=== PATIENT | male | born 1955 | race Caucasian/White ===

== ENCOUNTER 2024-07-20 11:41 | Day surgery (SDC) | payer OTHER, SELFPAY ==
[2024-07-20] VITALS (8 sets, daily range): BP systolic 120–157; BP diastolic 71–81; BMI 30.4
[2024-07-20] MEDS: NSS 280 ML IV (12:37)
[2024-07-20] MEDS: LOW STRENGTH ASPIRIN 81 MG PO (12:39)
--- NOTE | 2024-07-20 18:40 | PTCARENOTE ---
Patient received from the recyclable materials distributor. Right radial band intact. Right brachial dressing CDI. Walked into room assisted. Placed on telemetry, NSR, VSS. Oriented to call melendez and plan of care. at bedside
--- NOTE | 2024-07-20 20:10 | ITS.CL.PN ---
Assistant To The Ceo - Procedure Note
Procedure
Procedure Note:
CARDIAC CATHETERIZATION REPORT
Date of Procedure: 07/20/2024
Referring: Dr. Malcom Lamb MD
Indication: Severe aortic stenosis
PROCEDURE(S)
1. right heart catheterization
2. coronary angiography
ACCESS
1. 6F right radial artery (closure: radial band)
2. 5F right antecubital vein (closure: manual hemostasis)
CATHETERS
1. 5F [place]
2. 6F MPA (best for RCA given high anterior takeoff with downward trajectory)
3. 6F JL4
MODERATE SEDATION: 40 minutes of moderate sedation was utilized. An independent certified medical dosimetrist was present to assist with and help manage the patient's level of consciousness and physiologic status.
ULTRASOUND GUIDED VASCULAR ACCESS (right radial artery): Ultrasound was utilized for vascular access. The vessel was visualized under ultrasound and noted to be patent. An image of the vessel was stored permanently in the patient's medical record.
Under direct ultrasound guidance, vascular access was obtained using a modified Seldinger technique and a 6 Indian sheath was placed.
ULTRASOUND GUIDED VASCULAR ACCESS (right brachial vein): Ultrasound was utilized for vascular access. The vessel was visualized under ultrasound and noted to be patent. An image of the vessel was stored permanently in the patient's medical record.
Under direct ultrasound guidance, vascular access was obtained using a modified Seldinger technique and a 5 Indian sheath was placed.
HEMODYNAMIC DATA
AO 147/77 (mean 103) mmHg
RA 10 mmHg
RV 62/9 (EDP 18) mmHg
PA 53/22 (mean 38) mmHg
PCWP 33 (with V waves to 48) mmHg
SaO2 92.1%
SvO2 70.2 %
Hb 10.8 g/dL
CO/CI 8.12/3.89 L/min/m2
SVR 916 dsc*-5
PVR 0.6 Wood units
CORONARY ANGIOGRAPHY
Dominance: Right
LM: Large, normal
LAD: Large vessel giving rise to a small D1, small D2, moderate caliber D3, and moderate caliber D4. There is mild nonobstructive disease.
LCx: Large vessel giving rise to a large OM1 and medium caliber LPL branch. There is mild nonobstructive disease.
RCA: Large vessel giving rise to a large caliber RPDA and small RPL branch. There is severe ostial stenosis on the basis of complete lack of catheter reflux during injection with a 6 Indian diagnostic catheter and significant dye hang up prior to
catheter withdrawal. There is otherwise mild nonobstructive disease.
RADIATION: dose 784 mGy; DAP 53.5 Gy*cm2; fluoroscopy time 14.9 min
CONCLUSIONS
1. Single-vessel obstructive coronary artery disease as described with high-grade ostial stenosis of a large dominant RCA and otherwise mild disease.
2. Severely elevated left-sided filling pressure, moderate postcapillary pulmonary hypertension, and supranormal cardiac output.
RECOMMENDATIONS
1. Referral for single-vessel CABG and surgical AVR.
2. Aggressive secondary prevention of coronary artery disease
3. Medical management of diastolic and valvular heart failure
Copy to: Dr. Malcom Lamb MD (preschool associate teacher); Dr. Veto Elizabeth MD (PCP)
Signed: Domenic Lai MD, PhD
== END 2024-07-20 22:17 | disposition home or self-care (01) ==
LOC: CATH 11:41
PROVIDERS: ATTENDING PHYSICIAN Student in an Organized Health Care Education/Training Program; FAMILY PHYSICIAN Internal Medicine; OTHER PHYSICIAN Internal Medicine Cardiovascular Disease
DX: I35.0 Nonrheumatic aortic (valve) stenosis (principal); I25.10 Atherosclerotic heart disease of native coronary artery without angina pectoris; I27.29 Other secondary pulmonary hypertension; I48.0 Paroxysmal atrial fibrillation; E78.5 Hyperlipidemia, unspecified; I10 Essential (primary) hypertension; Z79.890 Hormone replacement therapy; Z79.82 Long term (current) use of aspirin; Z79.01 Long term (current) use of anticoagulants; Z87.891 Personal history of nicotine dependence
CPT/HCPCS: 99152; 99153; 76937; 93456; C1894

== ENCOUNTER → 2024-08-02 10:43 | Outpatient (REF) | payer OTHER, MEDICARE, SELFPAY | LOC: CVOR 10:43 | PROVIDERS: ATTENDING PHYSICIAN Nurse Practitioner Acute Care; FAMILY PHYSICIAN Internal Medicine; OTHER PHYSICIAN Thoracic Surgery (Cardiothoracic Vascular Surgery) | DX: I35.0 Nonrheumatic aortic (valve) stenosis (principal) | CPT/HCPCS: 75572; Q9967 ==

== ENCOUNTER 2024-08-22 04:57 | Inpatient (IN) | payer OTHER, MEDICARE, SELFPAY ==
[2024-07-27 12:16] VITALS: BMI 31.4
[2024-07-27 12:56] LABS: Urine Albumin Negative (Neg - Trace); Urine Bilirubin Negative (Negative); Urine Character Clear (Clear); Urine Color Yellow; Urine Glucose Negative (Negative); Urine Ketone Negative (Negative); Urine Leukocyte 1+ (Negative); Urine Nitrite Negative (Negative); Urine Occult Blood Negative (Negative); Urine Urobilinogen Negative (Neg - 1+)
[2024-07-27 12:58] LABS: % Basophils 0.7 % (0-2); % Eosinophils 3.9 % (0-6); % Immature Granulocytes 0.2 % (0-0.5); % Monocytes 11.3 % (1.7-9.3); % Neutrophils 51.9 % (42.2-75.2); Absolute Eosinophils 0.2 10^3/uL (0-0.7); Absolute Monocytes 0.7 10^3/uL (0.1-0.6); Absolute Neutrophils 3.2 10^3/uL (1.4-6.5); Hematocrit 34.3 % (39.0-52.0); Hemoglobin 11.3 g/dL (13.0-18.0); Mean Corp Hgb Conc. 32.9 g/dL (33.0-37.0); Mean Corpuscular Hgb 27.7 pg (27.0-31.0); Mean Corpuscular Volume 84.1 fL (80.0-94.0); Mean Platelet Volume 10.8 fL (7.4-10.4); Nucleated Red Blood Cells % 0 % (-); Platelet Count 224 10^3/uL (130-400); Red Blood Cell Count 4.08 10^6/uL (4.70-6.10); Red Cell Dist. Width 12.4 % (11.5-14.5); White Blood Cell Count 6.1 10^3/uL (4.8-10.8)
[2024-07-27 13:03] LABS: INR 0.96; PT 13.1 Sec (11.4-14.6)
[2024-07-27 13:03] LABS: Urine Bacteria Few (Negative); Urine Red Blood Cell 0-2 /HPF (0-2)
[2024-07-27 13:04] LABS: APTT 31.6 Sec (23.4-35.0)
[2024-07-27 13:13] LABS: ALT (SGPT) 21 U/L (0-50); AST (SGOT) 22 U/L (17-59); Albumin 4.3 g/dl (3.5-5.0); Alkaline Phosphatase 60 U/L (38-126); Blood Urea Nitrogen 16 mg/dl (9-20); Calcium 9.4 mg/dl (8.4-10.2); Carbon Dioxide 25 mmol/L (22-30); Chloride 103 mmol/L (98-107); Direct Bilirubin 0.1 mg/dl (0.0-0.4); Estimated Creatinine Clearance 103 ml/min; Glucose 93 mg/dl (70-99); Potassium 4.1 mmol/L (3.5-5.1); Sodium 136 mmol/L (135-145); Total Bilirubin 1.1 mg/dl (0.2-1.3); Total Protein 6.8 g/dl (6.3-8.2); eGFR > 60.00
[2024-07-27 14:05] LABS: Glycohemoglobin (HgbA1c) 5.3 % (4.0-5.6)
--- NOTE | 2024-07-27 15:22 | CM ---
CM following for DC planning needs.
Met w/ patient and spouse, Jessika during PATs for planned AVR/CABG.
Pt. resides w/ spouse in a private, split level home. Home has 1 [address]. There are 6 steps between levels.
Pt. is indep. in all areas at baseline; + drives, is retired.
Pt. has RX plan and uses [facility] in [place].
Reviewed pre and post op routines.
Soap, shower instructions, Cardiac Surgery booklet provided.
Reviewed post op restrictions to include lifting, driving, flying and sternal precautions.
Reviewed post op MD appointments, Cardiac Rehab and visit from [facility] Transitional [facility] RN.
Plan is for CT Surgery 08/08
Anticipated DC plan is for home w/ [facility] Transitional [facility] RN
CM to follow.
[2024-08-22] VITALS (18 sets, daily range): BP systolic 88–114; BP diastolic 53–65; BMI 30.4
[2024-08-22] MEDS: PROTONIX 40 MG PO (05:40)
[2024-08-22] MEDS: MAGNESIUM OXIDE 500 MG PO (05:40)
[2024-08-22] MEDS: LOPRESSOR 12.5 MG PO (05:40)
[2024-08-22] MEDS: BACTROBAN 2% OINTMENT 1 APPLIC NASAL ×2 (05:42→21:24)
--- NOTE | 2024-08-22 05:52 | PTCARENOTE ---
Patient admitted for CABG, AVR today. Vital signs obtained, clipped, medications administered. Patient took losartan yesterday CT PA notified. BB changed from atenolol 50mg to lopressor 12.5mg. Awaiting transfer to [facility]
--- NOTE | 2024-08-22 06:39 | W.CVOR.SURPR ---
CVOR Surgeon Immed Pre Op
-
I have examined this patient prior to performance of the scheduled procedure.
The patient's condition is unchanged from the time of the dictated/written History and
Physical and the patient is able to undergo the scheduled procedure.
CABG + MAZE + Clip + AVR
[2024-08-22 07:24] LABS: ACT+ - POC 156 Seconds (82-134)
[2024-08-22 08:11] LABS: ACT+ - POC 414 Seconds (82-134)
[2024-08-22 08:17] LABS: B.E. - POC -0.3 mmol/L; Glucose - POC 114 mg/dl (70-99); HCO3 - POC 25 mmol/L (21-28); Hematocrit - POC 31 % PCV (42-52); Hemodilution- POC No; Hemoglobin Calculated - POC 10.7; Ionized Calcium - POC 1.21 mmol/L (1.15-1.33); Lactate - POC 0.61 mmol/L (0.36-0.75); O2 Saturation %Calculated-POC 97.8 % (94-98); PCO2 - POC 45 mmHg (35-48); PO2 - POC 106 mmHg (83-108); Potassium - POC 3.6 mmol/L (3.5-5.1); Sodium - POC 146 mmol/L (136-145); Specimen Type - POC Arterial; pH - POC 7.36 (7.35-7.45)
[2024-08-22 08:27] LABS: ACT+ - POC 535 Seconds (82-134)
[2024-08-22 08:55] LABS: ACT+ - POC 444 Seconds (82-134)
[2024-08-22 09:12] LABS: Urine Albumin 1+ (Neg - Trace); Urine Bilirubin Negative (Negative); Urine Character Clear (Clear); Urine Color Yellow; Urine Glucose Negative (Negative); Urine Ketone Negative (Negative); Urine Leukocyte Negative (Negative); Urine Nitrite Negative (Negative); Urine Occult Blood 4+ (Negative); Urine Urobilinogen Negative (Neg - 1+)
[2024-08-22 09:25] LABS: ACT+ - POC 499 Seconds (82-134)
[2024-08-22 10:12] LABS: ACT+ - POC 96 Seconds (82-134)
[2024-08-22 10:29] LABS: B.E. - POC -4.6 mmol/L; Glucose - POC 132 mg/dl (70-99); HCO3 - POC 21 mmol/L (21-28); Hematocrit - POC 27 % PCV (42-52); Hemodilution- POC Yes; Hemoglobin Calculated - POC 9.2; Ionized Calcium - POC 1.06 mmol/L (1.15-1.33); Lactate - POC 1.05 mmol/L (0.36-0.75); O2 Saturation %Calculated-POC 99.9 % (94-98); PCO2 - POC 40 mmHg (35-48); PO2 - POC 281 mmHg (83-108); Potassium - POC 4.1 mmol/L (3.5-5.1); Sodium - POC 144 mmol/L (136-145); Specimen Type - POC Arterial; pH - POC 7.33 (7.35-7.45)
[2024-08-22 10:30] LABS: Urine Red Blood Cell 16-20 /HPF (0-2)
[2024-08-22 10:31] LABS: Urine Amorphous Seen; Urine Squamous Cell 0-2 /LPF (Few)
--- NOTE | 2024-08-22 10:31 | W.PN.CT.SURG ---
CT Surgery Operative Note
-
CARDIAC SURGERY OPERATIVE REPORT
Preoperative Diagnosis: Aortic valve stenosis with bicuspid valve morphology with single-vessel coronary artery disease and new onset atrial fibrillation
Postoperative Diagnosis: Same
Procedure(s) Performed:
1. Standard sternotomy with aortic and right atrial cannulation
2. Endoscopic harvesting of the right lower extremity
3. Coronary artery bypass grafting x 1 (Ao to RSVG to mid RCA)
4. Surgical left atrial maze [RF ablation using the encompass clamp]
5. Left atrial appendage exclusion [35 mm device]
6. Surgical aortic valve replacement [29 mm biological valve]
7. Placement temporary ventricular pacing wires
8. Trans-esophageal echocardiography
Date of Surgery: 08/22/24
Comorbidities:
1. Critical aortic Valve Stenosis with Bicuspid Valve Morphology (Type 1)
2. Single-vessel coronary artery disease
3. Atrial fibrillation, paroxysmal
4. Hypertension
5. Hyperlipidemia
6. Hemorrhoids
Attending Surgeon: Zachery Nelson MD, MS
Assistants: Raquel Kowalski PA-C (present and necessary to furniture removalist's assistant, retraction, suction, exposure, suture management, and wound closure under my direction) & Caroline Osullivan PA-C (endo vein harvest)
Anesthesiology: Robert Agudelo MD and JOHN Suero
Scrub and Circulating RNs: Tyra Khan RN, Coral Sweeney RN
Powered Bridge Specialist: Yulisa Mathews CCP
Anesthesia: GETA
EBL: per perfusion records
Products: None
CPB Time: 94 minutes
Aortic Cross Clamp Time: 71 minutes
Indication(s) for Procedures: This is a 69-year-old male who has severe aortic valve stenosis with bicuspid valve morphology. He had preserved left ventricular ejection fraction with mild mitral valve insufficiency that was functional. His mean
gradient across the aortic valve was in the 70s with an area of 0.77. Left heart cath demonstrated single-vessel coronary artery disease. Although his clinical status has not changed much and he denies any significant symptoms, he had new onset
atrial fibrillation over the last year. Shared decision making in a multidisciplinary team setting was to pursue surgical aortic valve replacement, left atrial ablation, and single-vessel bypass given his critical levels of aortic valve stenosis.
Aortic Valve Description: Heavily calcified bicuspid aortic valve with fusion of the left right coronary cusp, type I pathology. There is heavy calcium at the free margin extending into the body of the leaflets with Calcium infiltration into the
annulus particularly towards the non-right commissure. His left and right coronary ostia within normal anatomic positions.
Conduit(s) Quality:
RSVG -excellent/uniform in size and minimal varicosities
Target(s) Quality:
mRCA -excellent/large caliber target with 60 cc a minute of flow of antegrade with test dosing to a pressure 80 mmHg.
Findings: LVEF on intraoperative DON was 60% and 70% post procedure of note, he had a very high critical levels of aortic valve stenosis preoperatively while under anesthesia. His mean gradient across his valve was in the 70s and his LV pressures
were in the 200s. There was a moderate degree of aortic valve insufficiency. The aortic valve was implanted using a total of 17 nonpledgeted 2 Ethibond sutures placed circumferentially from LVOT through annulus through sewing cuff. There was no
prosthetic PVL or AI. Mean gradient across the prosthesis was 6 mmHg. He had severe ostial RCA stenosis and a bypass graft was placed to the midportion of the RCA where was soft and pliable. Test dose of antegrade down the graft demonstrated
excellent flow at a pressure of 80 mmHg yielding approximately 60 cc a minute. There were no new regional wall motion abnormalities. His left atrial appendage was verified to be free of any thrombus or debris preoperatively and found to be totally
occlusive postoperatively using a 35mm device. While on cardiopulmonary bypass left atrial maze was performed using the encompass clamp with a total of 3 pairs of successful ablations. At the inclusion of the case, he did have some ventricular
fibrillation immediately after the clamp was removed likely from air entrainment. Shock at 50 J resolved this. Under lidocaine was also given. His ST segments then normalized and his EKG was at baseline levels. He did not require any inotropic
support, he did not require any blood products, and was in his regular sinus rhythm postoperatively.
Specimen(s): Aortic valve leaflets.
Prosthesis:
1. 29 mm Magana Inspiris Resilia aortic valve, serial number: [id number]
2. 35 mm AtriCure clip, serial #[id number]
Description of Procedure: The patient was taken to the operating room. Their identity and procedure to be performed were verified and they were positioned supine on the operating table. Induction via general anesthesia with endotracheal intubation
was performed and central venous access and arterial monitoring were inserted. A preoperative transesophageal echocardiogram was performed. The patient was then prepped and draped from chin to feet in a sterile fashion. A preoperative time-out was
performed with all members of the team present. A midline chest incision was performed along with median sternotomy. Simultaneous endoscopic access of the right lower extremity for saphenous vein harvest was obtained. The innominate vein was
isolated. Full heparinization was given (a total of 63,000 units). I created a pericardial well. The aortic cannulation site was chosen where it was soft, pliable, and free of calcium. Cannulation was performed with an arterial cannula in the
ascending aorta and a triple-stage venous cannula through the right atrial appendage. The arterial cannula line had an appropriate bounce and correlating pressures with test dosing. Next, a root vent/antegrade cannula was inserted into the ascending
aorta. The ACT was confirmed to be over 400 and retrograde autologous priming was performed before commencing cardiopulmonary bypass. The SVC was then away from the RPA and the oblique sinus was developed. The encompass clamp was passed
underneath the SVC and IVC into the transverse and oblique sinuses and 3 successful pairs of ablation were performed using the RF clamp. The pulmonary artery was away from the aorta to facilitate a clamp site. The aortic cross-clamp was
placed after decreasing the flow on the bypass and mean arterial pressure. A total of 1.2L initial dose of antegrade Del-Nido cardioplegia solution was given and planned for re-dosing every 75 minutes as necessary. There was rapid electro-mechanical
arrest of the heart at 400 cc of cardioplegia. The left ventricle was observed for distention on echocardiogram and manual palpation. Cold slush was placed into a sponge and topically on the RV while we systemically cooled to 34 degrees centigrade.
At this point the heart was fully arrested and rotated medially and the left atrial appendage was clipped with a 35 mm device.
Carbon dioxide was used to flood the field. An aortotomy was then created just above the STJ and incision was then enlarged with Metzenbaum scissors. Stay sutures were placed in order to expose the valve. The location of both left and right
coronary vessels were visualized in the root. The aortic valve was inspected and found to be heavily calcified. The leaflets were excised and sent for pathological assessment. The annulus was debrided of any calcium. The root and left ventricular
outflow tract were thoroughly irrigated to remove any debris. At this point the vein had been prepped and was available for use. I then dissected the midportion of the RCA vessel and made a small coronary arteriotomy and then enlarged with Marroquin
scissors. The end of the vein was then beveled and end-to-side anastomosis was created with 7-0 Prolene in a running fashion. Additional cardioplegia of approximately 150 cc was given down this graft as he had a tight ostial lesion known
preoperatively. I then turned my attention back towards the root and A total of 17, non-pledgeted 2-0 ethibond annular sutures were placed [id number] circumferentially. These were brought through the sewing cuff of the prosthetic valve which as
then parachuted into place. The left and right coronary ostia were visualized and were unobstructed by the valve. A Cor-Knot device was used to secure the annular sutures. The valve was inspected and was well seated. The aortotomy was approximated
with 4-0 prolene in two layers. The heart was filled and the root was distended with antegrade cardioplegia to make final assessment of graft length and orientation. I created one aortotomy using a #11 blade then a 4.0mm aortic punch above the
aortic suture line. The proximal anastomoses were created in an end-to-side fashion using 6-0 prolene. At the same time, we started to re-warm to 36.5 degrees centigrade. Temporary bipolar ventricular pacing wires were placed on the base of the
right ventricle. The patient was placed in a Trendelenburg position and flows on bypass were lowered. The aortic cross clamp was removed and flows were slowly brought back up. The aortotomy appeared hemostatic. He was in ventricular fibrillation at
this point and so a 50J defibrillatory shock was done with good effect. 100 of lidocaine was also given. A 30-gauge needle was used to de-air the vein graft. All bypass grafts were inspected and were free from kinking or twisting. The distal and
proximal anastomosis appeared hemostatic. De-airing maneuvers were performed. Transesophageal echocardiography revealed no paravalvular leak and appropriate prosthetic function. Once de-airing was satisfactory, the left ventricular and root vents
were removed. After verifying acceptable parameters, we initiated weaning from cardiopulmonary bypass. Once we were off cardiopulmonary bypass, the venous cannulas was clamped and removed. A test dose of protamine was administered and the patient
was monitored for any adverse reaction before resuming protamine. Once half of the protamine dose was delivered, pump suckers were turned off and the systolic blood pressure was lowered for aortic decannulation. The aortic cannula was removed and
pursestrings were tied down. All cannulation sites were oversewn with a 4-0 prolene. The aortic line, proximal, and distal coronary anastomoses were hemostatic. The mammary bed was inspected and hemostasis was confirmed. Once the mediastinum was
hemostatic, a 19Fr Maxi drain was placed in the Right pleural cavity and two 24Fr Maxi drains were placed within the pericardium. The sternum was approximated with 4#7 single and 3 #8 double stainless steel wires. Fascia was approximated with #1
vicryl suture. The subcutaneous, dermis and epidermis were closed in layers in a running fashion. The skin wound was cleansed and dressed.
All instrument, sponge, and needle counts were confirmed to be correct x 2 at the end of the operation. The patient was transferred to the cardiac intensive care unit in critical but stable condition.
I, Dr. Zachery Nelson, was present, scrubbed for, and performed all critical elements of this procedure.
Zachery Nelson MD, MS
Cardiothoracic Surgeon
[facility]
This operative dictation was created using the [employer] dictation system. Please excuse any grammatical, typographical, or 'sound alike' errors
--- NOTE | 2024-08-22 10:43 | CON.INTV ---
Consultation
Consultation Request
Date/Time Consultation Requested: 08/22/2024 - 1013
Date/Time Consultation Performed: 08/22/2024 - 1037
Requesting Provider: SHANON Ling
Performing Provider: Dr. Boo
Reason for Consultation: s/p SAVR/CABG /MAZE/ELAA
Medical History
-
Chief Complaint: Elective SAVR + CABG
History of Present Illness:
69-year-old male former tobacco smoker with a past medical history of aortic valve stenosis, A-fib on Xarelto, hypertension, dyslipidemia and history of hemorrhoids who presents with elective surgical aortic valve replacement + CABG. Patient known
to the cardiothoracic surgery service with last visit on 07/26/[address] Nelson. Transthoracic echo on 07/12/2024 showed a bicuspid aortic valve that was heavily calcified with severely restricted motion with critical aortic stenosis with mean
gradient of 73 mmHg. Also mild AI and mildly dilated aortic root up to 4.1 cm. Left + right heart catheterization on 07/20/2024 postcapillary pulmonary hypertension with TPG of 5 mmHg, normal PVR of 0.6 Wood units, PA pressure of 53/22, PCWP: 33
mmHg, and single-vessel obstructive coronary artery disease with high-grade ostial stenosis of a large dominant RCA. Surgical intervention of his aortic valve as well as surgical revascularization was discussed and he agreed to this procedure.
Today he underwent CABG x 1, surgical left atrial MAZE using the EnCompass clamp, surgical aortic valve replacement with a 29 mm biological valve and left atrial appendage exclusion with a 35mm device. There were no complications and he was
transferred to the CVICU postoperatively for further care with Production Director services consulted for additional management/recommendations.
When I saw the patient he was resting in bed in no acute distress on SIMV 16/500/40%/5, with PSV: 5. His PIP was 13 cmH2O, VTe 366 mL and breathing at 29 breaths/min. Currently, heart rate 63, BP via A-line 86/50 Pat, BP via NIBP: 93/55, PAP 31/22
and CO/CI: 6.3/3.01, respectively. Mediastinal chest tubes x 2 and right pleural chest tube x [address]. Currently on Precedex at 0.4 mcg/kg/hr, Cardene at 2.5 mg/hr and insulin drip at 2.3 units/hr.
PMHx: Nonrheumatic aortic valve stenosis, A-fib on Xarelto, hypertension, dyslipidemia, history of hemorrhoids
PSHx: Cardiac cath
Past Medical History
Past Medical History: Other (Above as per HPI)
Past Surgical History: Other (Above as per HPI)
Social History
Tobacco: Former Smoker
Alcohol: Occasional (Rarely)
Drug: None
Personal:
Living: With Family
Employment: Retired
Family History
Family History: CAD (Father)
Allergies / Home Medications
Allergies
Allergy/AdvReac Type Severity Reaction Status Date / Time
bee venom protein (honey bee) Allergy Swelling Verified 07/26/24 14:19
Home Medications
�Medication �Instructions �Recorded �Confirmed �Last Taken �Type
atorvastatin 40 mg tablet 40 mg PO QPM #90 tabs 07/20/24 08/22/24 08/21/24 18:00 Rx
nitroglycerin 0.4 mg sublingual 0.4 mg sublingual [id number] PRN 07/20/24 07/26/24 Unknown Rx
tablet chest pain #25 tabs
rivaroxaban 20 mg tablet (Xarelto) 20 mg PO HS Blood Clot 07/20/24 08/22/24 08/19/24 11:00 History
Prevention/Tx
atenolol 50 mg tablet 50 mg PO DAILY Blood Pressure 07/26/24 08/22/24 08/21/24 12:00 History
levothyroxine 125 mcg tablet 125 mcg PO DAILY Thyroid 07/26/24 08/22/24 08/21/24 07:00 History
losartan 100 1 tab PO DAILY Blood Pressure 08/22/24 08/22/24 08/21/24 12:00 History
mg-hydrochlorothiazide 25 mg tablet
Review of Systems
-
Unable to Obtain full review of systems at this time due to: Patient Intubation
Vitals / Labs / Diagnostic Testing
Vital Signs
Temp Pulse Resp BP Pulse Ox
98 F 75 17 102/65 93
08/22/24 15:00 08/22/24 15:00 08/22/24 15:00 08/22/24 15:00 08/22/24 15:00
Lab Data
08/22/24 15:20
08/22/24 10:54
Laboratory Results
08/22/24
10:54
PT 16.1 H
INR 1.24
APTT 30.9
pH 7.36
pCO2 48
pO2 91
HCO3 27.1
O2 Delivery Level
Diagnostic Testing:
Physical Exam
-
HEENT: Normocephalic, Anicteric and Other (ETT in place)
Cardiovascular: S1/S2 and Peripheral Edema (negative)
Respiratory: Wheeze (negative), Rales (negative), Rhonchi (negative), Non-Labored Respirations, Other (Mechanical breath sounds heard bilaterally) and Other (Chest tubes: Mediastinal chest tubes x 2 + right pleural chest tube x 1)
GI: Soft, Non Distended, Non Tender and Normal Bowel Sounds
Neurology: Tremors (negative) and Other (Sedated)
Skin: Warm and Dry
General: Respiratory Distress (negative), Comfortable, Fever (negative) and Chills (negative)
Assessment
-
Assessment: 69-year-old male former tobacco smoker with a past medical history of aortic valve stenosis, A-fib on Xarelto, hypertension, dyslipidemia and history of hemorrhoids who presents with elective surgical aortic valve replacement + CABG.
Patient known to the cardiothoracic surgery service with last visit on 07/26/[address] Nelson. Transthoracic echo on 07/12/2024 showed a bicuspid aortic valve that was heavily calcified with severely restricted motion with critical aortic stenosis
with mean gradient of 73 mmHg. Also mild AI and mildly dilated aortic root up to 4.1 cm. Left + right heart catheterization on 07/20/2024 postcapillary pulmonary hypertension with TPG of 5 mmHg, normal PVR of 0.6 Wood units, PA pressure of 53/22,
PCWP: 33 mmHg, and single-vessel obstructive coronary artery disease with high-grade ostial stenosis of a large dominant RCA. Surgical intervention of his aortic valve as well as surgical revascularization was discussed and he agreed to this
procedure. On 08/22/2024, he underwent CABG x 1, surgical left atrial MAZE using the EnCompass clamp, surgical aortic valve replacement with a 29 mm biological valve and left atrial appendage exclusion with a 35mm device. There were no
complications and he was transferred to the CVICU postoperatively for further care with Production Director services consulted for additional management/recommendations.
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
Impression:
#Critical aortic stenosis with bicuspid valve morphology s/p SAVR with 29 mm biological valve � POD #0
#New onset paroxysmal atrial fibrillation on Xarelto s/p surgical left atrial MAZE using the EnCompass clamp + left atrial appendage exclusion with 35mm device � POD #0
#Single-vessel CAD with high-grade ostial RCA stenosis s/p CABG x 1 (Ao to RSVG to mid RCA) - POD#0
#Anemia due to above
#Hyperglycemia (mild)
#Hypothyroidism
#Hypertension
#Hyperlipidemia
#History of hemorrhoids
#Former tobacco smoker
Plan:
Ventilator settings reviewed
FiO2 will be weaned to maintain SpO2 >90-94%
Minute ventilation will be adjusted
Arterial blood gases will be monitored
Spontaneous breathing trial will be attempted with hopeful extubation after anesthesia/sedation wear off
prn nebulized bronchodilators - not currently bronchospastic
Pulmonary artery catheter parameters will be followed
Pressors/antihypertensive/inotropes/diuretics will be provided as needed
Maintain MAP>65
Replete electrolytes with K>4, Mg>2
Continue DAPT with ASA + plavix; high intensity statin
Monitor chest tube output (mediastinal chest tubes x 2 + right pleural chest tube x 1)
Monitor hemoglobin
Monitor platelet count and coags
Transfuse blood products as needed to maintain Hb>7g/dL, plt>50k (given post-operative status)
CT surgery managing chest tubes
Monitor blood sugar to maintain euglycemia with goal BG 110-140
Insulin drip per protocol
Aspiration precautions
VAP prevention protocol
DVT prophylaxis
Early nutrition
Early mobilization
Critical care statement: A total of 41 minutes of critical care time was provided for this patient today. This includes management of ventilator, spontaneous breathing trial, arterial blood gases, pressors, of unstable vital signs, evaluation of the
patient at bedside, reviewing the patient's pertinent medical records including radiographs, microbiology, laboratory evaluations, and discussion with primary team and critical care nursing.
[2024-08-22 10:56] LABS: Glucose - Point of Care 121 mg/dl (70-99)
--- NOTE | 2024-08-22 10:57 | CM ---
Chart reviewed. Patient is in the OR today. Patient is independent of ADLS, lives with his in a split level, 1 SACHI, 6 steps between, 0 DME. Plan is for the patient to return home with CT Transitional RN. CM to follow
[2024-08-22 11:09] LABS: B.E. 1.2 mmol/L; HCO3 27.1 mmol/L (21-28); Ionized Calcium 1.27 mMOL/L (1.15-1.33); O2 Saturation % 98.7 % (94-98); PCO2 48 mmHg (35-48); PO2 91 mmHg (83-108); Sodium 140 mMOL/L (136-145); pH 7.36 (7.35-7.45)
[2024-08-22 11:23] LABS: Hematocrit 29.2 % (39.0-52.0); Hemoglobin 9.6 g/dL (13.0-18.0); Platelet Count 155 10^3/uL (130-400)
--- NOTE | 2024-08-22 11:27 | PTCARENOTE ---
Pt arrived from CVOR to CVICU at 1055. Pt is intubated and sedated. SR with HR 60's. BP 109/56 MAP 72. PA 32/22, CVP 14, CO 6.30, CI 3.01, SVR 762. Epicardial V wire in place set to 30//. Bilateral pedal pulses weakly palpable, bilateral radial
pulses palpable. #8ET tube in place at 24cm. Vent set to SIMV [id number]%, rate 16, TV 500, Peep 5, Pressure support 5. Pulse oximetry 95%. Oral care completed. Mediastinal chest tubes x2 and right pleural chest tube in place to -20 suction, no sign of
air leak or crepitus, drainage red in color. Bowel sounds hypoactive. Luis catheter in place draining yellow urine. Luis care completed. Midsternal incision approximated and LAKEISHA. Right leg incision with maximilian wrap overlay in place. Right groin
puncture with dressing intact. Right IJ cordis and Rosine at 55cm. Right radial Bridgette intact. Pt currently on Precedex, Cardene and Insulin. Post-op EKG and x-ray obtained. Labs collected and reviewed.
[2024-08-22] MEDS: ANCEF 10 IV ×2 (11:51→11:52)
[2024-08-22] MEDS: NSS 500 IV (11:51)
[2024-08-22] MEDS: ZOFRAN 4 MG IV (11:51)
[2024-08-22] MEDS: DILAUDID 0.25 MG IV (11:51)
[2024-08-22 11:56] LABS: APTT 30.9 Sec (23.4-35.0); INR 1.24; PT 16.1 Sec (11.4-14.6)
[2024-08-22 12:07] LABS: Glucose - Point of Care 166 mg/dl (70-99)
[2024-08-22 12:30] LABS: Blood Urea Nitrogen 15 mg/dl (9-20); Estimated Creatinine Clearance 101 ml/min; Glucose 123 mg/dl (70-99); Magnesium 2.6 mg/dl (1.6-2.3)
--- NOTE | 2024-08-22 12:33 | W.PN.UPDATE ---
Update Note
Progress Note Update
69-year-old male with aortic valve stenosis with bicuspid valve morphology, single-vessel coronary artery disease and new onset atrial fibrillation
IV fluids: 1200
U.O.:� 750
Blood:� none
Wires:� 1 bipolar V-wire
Drips: Cardene @ 2.5, Precedex, Insulin
�
NEURO: sedated, pupils +2mm B/L
RESP: #8OT @24cm> 500/60%/14/5. Lungs clear B/L. 2 mediastinal (0cc on arrival) and R pleural (0cc on arrival) chest tubes to -20cm suction. Sanguineous drainage, no air leak, no crepitus
CV: RRR +S1, S2, no S3, no�rub, no murmur. Dermabond to median sternotomy. RIJ w/[place] locked @ 49cm. PA 27/18; CVP 11; C.O 6.3/CI 3.0
ABD: round, soft, no BS
EXT: no edema, +2/4 DP pulses B/L, no femoral bruit, RLE GRACY wrap intact; left radial A-line intact
: Luis with clear yellow urine
�
A/P: POD #0 s/p aortic valve replacement [29 mm biological valve], CABG x 1 (SVG to mid RCA), surgical left atrial maze [RF ablation using the encompass clamp], left atrial appendage exclusion [35 mm device]
DON: EF�EF 65%, AV 12/7mmhg, no AI
- wean and extubate
- will need instruction regarding antibiotic prophylaxis for dental and invasive procedures
# CAD
- will add ASA, Plavix, statin, beta elieser
# Hx AF
- currently SR
- on Xarelto at home for AF-monitor for need to resume
# Hypothyroidism
- continue Synthroid
�
# acute surgical blood loss anemia-expected
- trend CBC
�
# Hypertension
- assess need to resume home Losartan/HCTZ
[2024-08-22 13:02] LABS: Glucose - Point of Care 145 mg/dl (70-99)
[2024-08-22] MEDS: OFIRMEV 100 IV (13:18)
[2024-08-22] MEDS: TYLENOL PO (13:19)
[2024-08-22 13:23] LABS: B.E. - POC 0.4 mmol/L; Blood Urea Nitrogen - POC 15 mg/dl (3-120); Chloride - POC 108 mmol/L (96-111); Creatinine - POC 0.92 mg/dl (0.3-1.0); Glucose - POC 141 mg/dl (70-99); HCO3 - POC 26 mmol/L (21-28); Hematocrit - POC 29 % PCV (42-52); Hemodilution- POC No; Hemoglobin Calculated - POC 9.9; Ionized Calcium - POC 1.23 mmol/L (1.15-1.33); Lactate - POC 1.01 mmol/L (0.36-0.75); O2 Saturation %Calculated-POC 93.2 % (94-98); PCO2 - POC 43 mmHg (35-48); PO2 - POC 69 mmHg (83-108); Potassium - POC 3.4 mmol/L (3.5-5.1); Sodium - POC 146 mmol/L (136-145); Specimen Type - POC Arterial; pH - POC 7.39 (7.35-7.45)
[2024-08-22 14:06] LABS: Glucose - Point of Care 113 mg/dl (70-99)
--- NOTE | 2024-08-22 14:07 | PTCARENOTE ---
Pt awakening following commands, CPAP trial initiated at 1250. Ofirmev given for pain. ABG done at bedside by CT CHRIS, Rachel. Pt extubated at 1324 without issue to 6L nasal canula. Pulse oximetry 93%.
[2024-08-22] MEDS: DILAUDID 0.5 MG IV ×2 (15:06→18:10)
[2024-08-22 15:14] LABS: Glucose - Point of Care 104 mg/dl (70-99)
[2024-08-22] MEDS: TORADOL 15 MG IV ×2 (15:27→21:46)
[2024-08-22] MEDS: NEURONTIN 100 MG PO ×2 (15:27→22:12)
[2024-08-22] MEDS: PACERONE PO (15:28)
[2024-08-22] MEDS: LOW STRENGTH ASPIRIN 81 MG PO (15:28)
[2024-08-22 15:52] LABS: Hemoglobin 9.4 g/dL (13.0-18.0); Platelet Count 155 10^3/uL (130-400)
[2024-08-22] MEDS: LIPITOR PO (16:31)
--- NOTE | 2024-08-22 16:33 | PTCARENOTE ---
Pt remains SR with HR 70's. BP 98/52 MAP 66. PA 27/18, CVP 10. CO 3.80, CI 7.94, SVR 624. Pulse oximetry 90% on 6L nasal cannula. Pt with complaints of sternal pain, PRN Dilaudid and Toradol administered. Currently on Cardene and Insulin.
--- NOTE | 2024-08-22 16:49 | W.PN.CD ---
Addendum entered and electronically signed by Fili Correia MD 08/22/24 17:33:
I saw and examined the patient.
The JOINTER OPERATOR's note was reviewed and I agree with the note.
Comment:
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 He is awake and alert at time of my assessment. Complaining of chest
pressure. He remains on a Cardene drip but is otherwise off vasoactive infusions. Postop ECG with normal sinus rhythm, LVH with repolarization abnormality, inferior T wave inversions (new).
Continue routine postoperative care.
Continue aspirin, statin, and beta-elieser.
Resume anticoagulation when safe from a surgical standpoint.
Original Note:
Today's Communication / Plan
-
Close post-op monitoring and care per CT surgery/CVICU protocol.
Impression / Plan
-
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
CAD, aortic stenosis:
-s/p coronary artery bypass grafting x 1 (Ao to RSVG to mid RCA), surgical left atrial maze, left atrial appendage exclusion, and biologic aortic valve replacement.
-extubated and in no distress at the time of my assessment
-CT's, Luis, pacer wire in place
-remains on Cardene drip
-EKG and tele SR
-intra-op DON EF 60%
-ASA, statin, BB
PAF:
-stable in SR
-resume OAC when safe post-op
-had surgical maze and GARCIA exclusion as above
HTN:
-monitor post-op
Dyslipidemia:
-statin
Physical Exam
Vital Signs/Labs
Vital Signs
Temp Pulse Resp BP Pulse Ox
97.8 F 73 20 98/53 92
08/22/24 16:00 08/22/24 16:20 08/22/24 16:20 08/22/24 16:00 08/22/24 16:20
08/21/24 08/22/24 08/23/24
06:59 06:59 06:59
Actual Weight 93.4 kg
08/22/24 15:20
08/22/24 10:54
PT 16.1 Sec (11.4-14.6) H 08/22/24 10:54
INR 1.24 08/22/24 10:54
APTT 30.9 Sec (23.4-35.0) 08/22/24 10:54
Magnesium 2.6 mg/dl (1.6-2.3) H 08/22/24 10:54
Physical Exam
Constitutional: No acute distress
EENT: Anicteric
Cardiovascular: Rhythm & rate is regular
Respiratory: Respiratory effort normal and Lungs clear to auscul.
Neuro/Psych: Alert and Oriented
Other: Skin (midsternal incision without redness, drainage, swelling. Well-approximated.)
Data Reviewed
-
Date of Service: August 22, 2024
EKG: Tracing Personally Visualized and interpreted (NSR LVH stable overall from previous) and Other (SR)
Medical Tests (PFT, Pathology etc): Report Reviewed by me (as noted)
Labs: Labs Reviewed by me
[2024-08-22 17:20] LABS: Glucose - Point of Care 125 mg/dl (70-99)
[2024-08-22] MEDS: ANCEF 5 IV (17:23)
[2024-08-22] MEDS: FLEXERIL 5 MG PO (17:24)
[2024-08-22] MEDS: ROXICODONE 5 MG PO (17:24)
[2024-08-22 19:16] LABS: Glucose - Point of Care 105 mg/dl (70-99)
[2024-08-22] MEDS: CARDENE 200 IV (19:19)
[2024-08-22] MEDS: NITROGLYCERIN PREMIX 250 IV (20:09)
--- NOTE | 2024-08-22 20:43 | PTCARENOTE ---
Report received from GLENN Culp. Walking rounds done. Pt awake, calm, oriented x 4. Does understand Thai. Will speak with his in [place]. Occasional moments of restlessness. Precedex at 0.2 mcg/kg/hr. Keeping SBP 90-110 mm Hg. Cardene gtt
titrated to 12.5 mg/hr for SBP 120-130's. Sats noted to be 91-95% on 6L/NC. Discussed gtts and BP/sats with PA. NTG gtt started at 5 mcg/min at 2018. Cardene gtt titrated downwards as BP tolerates. See med titration flowsheets. Audible heart tones.
+ pericardial rub. V wire attached to temp pacer box, back up rate 30/mA 10/ sens 2. CT x 3, all to -20 cm suction. For pulse and wound assessments, see flowsheets. Pt in SR, rate 70's. Last CI 3.8. SVR 611-shared with PA.
O2 at 6L/NC. BBS present. Decreased B bases. Belly soft, nontender. Hypoactive bs x 4. Luis draining clear, yellow urine. Hourly UO and CT outputs monitored (and CT output prn). Glycemic protocol maintained. Insulin gtt at 2 units/hr. JANEL Fink
at bedse to assess pt. Ongoing plan of care. remains at bedside. Staying overnight.
[2024-08-22 21:00] LABS: Glucose - Point of Care 110 mg/dl (70-99)
[2024-08-22] MEDS: PACERONE 200 MG PO (22:12)
[2024-08-22] MEDS: SENOKOT-S 1 TABLET PO (22:12)
[2024-08-22] MEDS: TYLENOL 1000 MG PO (22:13)
--- NOTE | 2024-08-22 22:15 | PTCARENOTE ---
Precedex gtt off at 2130. Pt more sleepy. RR 13-15 br/min. Sats 90-91%. NTG titrated up to 20 mcg/min. Cardene gtt off at 2200 for BP 90's systolic. O2 sat noted to be 88-91%. Midflow at 15L O2 placed by RT. Transitioned to ventimask 50% due to pt
mouth breathing. Sats 90-92%. NRB applied at 2200. Sats up to 99%. CDB and IS done with pt. IS peak 500 mls.To draw ABG at 2240 per order. Toradol 15 mg IV given for pain-8/10 sternal pain. Ongoing plan of care.
[2024-08-22 22:56] LABS: Glucose - Point of Care 96 mg/dl (70-99)
[2024-08-22 22:56] LABS: B.E. 0.2 mmol/L; HCO3 24.6 mmol/L (21-28); Ionized Calcium 1.18 mMOL/L (1.15-1.33); O2 Saturation % 99.9 % (94-98); PCO2 38 mmHg (35-48); PO2 141 mmHg (83-108); Potassium 3.4 mMOL/L (3.5-5.1); pH 7.42 (7.35-7.45)
[2024-08-22] MEDS: KCL 50 IV (23:17)
--- NOTE | 2024-08-22 23:33 | PTCARENOTE ---
Addendum entered by Manav Navas RN 08/22/24 23:40:
NRB mask increased to 10 L. Sats 93-94% prior to increasing . Pt asked for O2 to be increased. C/O mild dyspnea. PA made aware. Sats on 10L are 97%. Pt sleeping intermittently.
Original Note:
NTG gtt titrated to 50 mcg/min at 2300. Goal SBP 90-110 mm Hg. Cardene gtt restarted per instruction of PA at 2318 at 2.5 mg/hr. PA with ABG results. K 3.4. . 20 meQ KCL IV given x 2 per CVICU protocol. NRB mask at 5L (per PA). Sats 94%.
[2024-08-23] VITALS (26 sets, daily range): BP systolic 88–143; BP diastolic 50–70; PULSE 76; O2SAT 93; BMI 30.6
[2024-08-23] MEDS: KCL 50 IV (00:21)
[2024-08-23 01:22] LABS: Glucose - Point of Care 116 mg/dl (70-99)
[2024-08-23] MEDS: ANCEF 5 IV ×2 (01:45→09:32)
[2024-08-23] MEDS: ROXICODONE 5 MG PO ×4 (01:46→21:32)
--- NOTE | 2024-08-23 02:03 | PTCARENOTE ---
BP elevated 110-120 mm HG systolic. Pt does c/o sternal pain 12/16. Roxicodone 5 mg po given. NTG gtt titrated up to 60 mcg/min at 0130. Cardene gtt titrated up at 0200 to 5 mg/hr. Discussed with PA. CI done: 3.75.
[2024-08-23 03:39] LABS: B.E. -1.8 mmol/L; HCO3 23.1 mmol/L (21-28); Ionized Calcium 1.21 mMOL/L (1.15-1.33); O2 Saturation % 98.8 % (94-98); PCO2 39 mmHg (35-48); PO2 99 mmHg (83-108); Potassium 3.9 mMOL/L (3.5-5.1); pH 7.38 (7.35-7.45)
[2024-08-23 03:39] LABS: Glucose - Point of Care 103 mg/dl (70-99)
[2024-08-23 03:47] LABS: Hematocrit 25.2 % (39.0-52.0); Hemoglobin 8.4 g/dL (13.0-18.0); Mean Corp Hgb Conc. 33.3 g/dL (33.0-37.0); Mean Corpuscular Hgb 27.6 pg (27.0-31.0); Mean Corpuscular Volume 82.9 fL (80.0-94.0); Mean Platelet Volume 10.6 fL (7.4-10.4); Platelet Count 151 10^3/uL (130-400); Red Blood Cell Count 3.04 10^6/uL (4.70-6.10)
[2024-08-23 04:04] LABS: Blood Urea Nitrogen 21 mg/dl (9-20); Calcium 8.1 mg/dl (8.4-10.2); Carbon Dioxide 22 mmol/L (22-30); Chloride 112 mmol/L (98-107); Estimated Creatinine Clearance 101 ml/min; Glucose 101 mg/dl (70-99); Magnesium 2.4 mg/dl (1.6-2.3); Potassium 3.9 mmol/L (3.5-5.1); Sodium 142 mmol/L (135-145); eGFR > 60.00
--- NOTE | 2024-08-23 04:12 | W.PN.CT ---
Today's Communication / Plan
-
-pod #1
-hemodynamically and neurologically stable.
-some hypoxia, suspect d/t splinting. pOx 97% on 10L partial rebreather
-encourage IS, pulmonary toilet
-maintained sbp 90-110 overnight per AT
-CI 3.19, CO 6.67, SVR 599. Drips: Nitro 50, Cardene 2.5, Insulin
-CT outputs: 2 meds 85/185, R pleur 75/140 in 12/24 hrs
-wean off drips. Liberalize BP as per Dr. Nelson
-current meds (ASA, Plavix, Lopressor, Amio, Lipitor, Protonix)
-deline
-d/c Luis
-d/c insulin
Assessment / Plan
-
- Aortic valve stenosis with bicuspid valve morphology with single-vessel coronary artery disease and new onset atrial fibrillation- s/p Surgical aortic valve replacement [29 mm Magana Inspiris Resilia biological valve]; CABG x 1 (Ao to RSVG to mid
RCA); EVH of RLE; LAAE [35 mm device] by Dr. Nelson on 08/22/24, pod #1
- Intraop DON: LVEF on intraoperative DON was 60% and 70% post procedure of note, he had a very high critical levels of aortic valve stenosis preoperatively while under anesthesia. His mean gradient across his valve was in the 70s and his LV
pressures were in the 200s. There was a moderate degree of aortic valve insufficiency. There was no prosthetic PVL or AI. Mean gradient across the prosthesis was 6 mmHg. There were no new regional wall motion abnormalities. His left atrial
appendage was verified to be free of any thrombus or debris preoperatively and found to be totally occlusive postoperatively using a 35mm device.
- Critical aortic Valve Stenosis with Bicuspid Valve Morphology (Type 1)
- Single-vessel coronary artery disease
- New onset atrial fibrillation, paroxysmal
- Hypertension
- Hyperlipidemia
- Hemorrhoids
- Former smoker
- Class 1 obesity, BMI 30
- Hypothyroidism
- Acute postop blood loss anemia
- Acute postop atelectasis
- Acute postop hypovolemia with subsequent hypervolemia
Discussed patient care with: Nursing and Care Team
Subjective
-
Date of Service: August 23, 2024
Objective Data
-
PT 16.1 Sec (11.4-14.6) H 08/22/24 10:54
INR 1.24 08/22/24 10:54
APTT 30.9 Sec (23.4-35.0) 08/22/24 10:54
Vital Signs
Vital Signs
Temp Pulse Resp BP Pulse Ox
99.5 F 80 17 105/57 96
08/23/24 02:00 08/23/24 02:00 08/23/24 02:00 08/23/24 01:00 08/23/24 02:00
CT Intake/Output/Weight
08/22/24 08/22/24 08/23/24
06:59 18:59 06:59
Intake Total 470.5 / 1006.6 536.1 / 1006.6
Output Total 805 / 1240 435 / 1240
Balance -334.5 / -233.4 101.1 / -233.4
SaO2: 96
Physical Exam
-
General: Awake and AOx3
Cardiovascular: Regular rate & rhythm, No Murmurs and Rub
Respiratory: Decreased Breath Sounds
Sternum: Stable
Incision: Clean, Dry and Intact
Extremities: No Edema (1+ DPs b/l)
Abdomen: soft, nontender, nondistended, +decreased bowel sounds
Data Reviewed
-
Lab Results: Results Reviewed
Medications: Active Meds Reviewed
Chest X-Ray: Report Reviewed and Image Reviewed
ECG: Report Reviewed and Image Reviewed
[2024-08-23] MEDS: TORADOL 15 MG IV (04:30)
[2024-08-23] MEDS: CARDENE 200 IV (04:31)
[2024-08-23 04:32] LABS: TSH 0.41 uIU/ml (0.47-4.68)
[2024-08-23 05:11] LABS: Glucose - Point of Care 102 mg/dl (70-99)
[2024-08-23] MEDS: SYNTHROID 125 MCG PO (05:58)
[2024-08-23] MEDS: TYLENOL 1000 MG PO ×3 (05:58→21:32)
--- NOTE | 2024-08-23 06:41 | PTCARENOTE ---
Addendum entered by Manav Navas RN 08/23/24 06:46:
Janelle d/c'ed at 0610.
Original Note:
Labs drawn and sent this am. EKG done. CXR done. Everett d/c'ed per protocol and order. Pt helped up to chair at 0625 with assist of 4 (including PA). NTG gtt temporarily off when standing and restarted at 10 mcg/min. Current BP 105/45. Pt in SR. Sats
97% in 11L midflow. Pt denied dizziness, lightheadedness with sitting and standing. remains at bedside.
[2024-08-23 07:07] LABS: Glucose - Point of Care 112 mg/dl (70-99)
--- NOTE | 2024-08-23 08:19 | W.PN.INTV ---
Today's Communication / Plan
Recommendations
Up OOB as tolerated
Insulin to be stopped today, maintain BG 110�140
Encourage incentive spirometer
Pain control
Hypoxia overnight now resolved, unclear what caused it, possibly reperfusion injury in the setting of s/p SAVR vs bronchospasm --> I will make a follow up appt with me in office to continue monitoring and to possibly do full PFT and 6MWT
Patient will be downgraded to CVICU�telemetry status today. Once downgraded to CVICU-telemetry then we will sign off at that time. Thank you for involving us in the care of this patient and please call back with any questions or concerns.
Assessment
-
Assessment: 69-year-old male former tobacco smoker with a past medical history of aortic valve stenosis, A-fib on Xarelto, hypertension, dyslipidemia and history of hemorrhoids who presents with elective surgical aortic valve replacement + CABG.
Patient known to the cardiothoracic surgery service with last visit on 07/26/[address] Nelson. Transthoracic echo on 07/12/2024 showed a bicuspid aortic valve that was heavily calcified with severely restricted motion with critical aortic stenosis
with mean gradient of 73 mmHg. Also mild AI and mildly dilated aortic root up to 4.1 cm. Left + right heart catheterization on 07/20/2024 postcapillary pulmonary hypertension with TPG of 5 mmHg, normal PVR of 0.6 Wood units, PA pressure of 53/22,
PCWP: 33 mmHg, and single-vessel obstructive coronary artery disease with high-grade ostial stenosis of a large dominant RCA. Surgical intervention of his aortic valve as well as surgical revascularization was discussed and he agreed to this
procedure. On 08/22/2024, he underwent CABG x 1, surgical left atrial MAZE using the EnCompass clamp, surgical aortic valve replacement with a 29 mm biological valve and left atrial appendage exclusion with a 35mm device. There were no
complications and he was transferred to the CVICU postoperatively for further care with Customer Development Representative services consulted for additional management/recommendations.
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
Impression:
#Critical aortic stenosis with bicuspid valve morphology s/p SAVR with 29 mm biological valve � POD #1
#New onset paroxysmal atrial fibrillation on Xarelto s/p surgical left atrial MAZE using the EnCompass clamp + left atrial appendage exclusion with 35mm device � POD #1
#Single-vessel CAD with high-grade ostial RCA stenosis s/p CABG x 1 (Ao to RSVG to mid RCA) - POD#1
#Anemia due to above
#Hyperglycemia (mild) - resolved (A1C: 5.3 on 07/27/2024)
#Hypothyroidism
#Hypertension
#Hyperlipidemia
#History of hemorrhoids
#Former tobacco smoker
Plan:
Patient was successfully extubated on 08/22/2024, and is currently on 2 L/min nasal cannula saturating 95%
He did have hypoxia overnight, although CI was >3. Perhaps he had a bronchospasm or sequelae of reperfusion injury in case of s/p SAVR; his interatrial septum appeared normal on DON from 08/22, and his CXR from yesterday as well as this morning
shows stable retrocardiac opacification likely due to subsegmental atelectasis
Continue to wean down O2 flow rate to maintain SpO2 >90-94%
prn nebulized bronchodilators - not currently bronchospastic
Encourage incentive spirometer use q1hr while awake
Pulmonary artery catheter parameters will be followed
Pressors/antihypertensive/inotropes/diuretics will be provided as needed
Maintain MAP>65
Replete electrolytes with K>4, Mg>2
Continue DAPT with ASA + plavix; high intensity statin
Monitor chest tube output (mediastinal chest tubes x 2 + right pleural chest tube x 1)
Monitor hemoglobin
Monitor platelet count and coags
Transfuse blood products as needed to maintain Hb>7g/dL, plt>50k (given post-operative status)
CT surgery managing chest tubes
Monitor blood sugar to maintain euglycemia with goal BG 110-140
Insulin drip to be stopped today. Then start ISS to keep BG at goal as above
Aspiration precautions
DVT prophylaxis
Early nutrition
Early mobilization
Patient will be downgraded to CVICU�telemetry status today. Once downgraded to CVICU-telemetry then we will sign off at that time. Thank you for involving us in the care of this patient and please call back with any questions or concerns.
Total time spent today was 79 minutes for this encounter. Time includes reviewing laboratory test/imaging results, reviewing pertinent medical records, obtaining and reviewing medical history, performing an appropriate exam, ordering medications,
tests and procedures. Time also includes documentation of this encounter, coordinating patient care and communicating with other healthcare professionals. Total time does not include separately billed tests performed on this date of service.
Subjective Dataa
Subjective Data
Date of Service:
Date of Service: August 23, 2024
Chief Complaint: Customer Development Representative Follow Up
Subjective:
Patient was seen and evaluated today at bedside. Overnight he was requiring a nonrebreather at 10 L/min due to hypoxia and he was mouth-breathing prior to that. He also endorsed shortness of breath. Later overnight he had sternal pain and given
Roxicodone with nitroglycerin drip increased to 60 mcg/min and then requiring Cardene drip at 5 mg/h. CI at the time was 3.75.
This morning he feels well. Heart rate 82, BP 129/75, and saturating 95% on 2 L/min. His , Jessika, is at bedside and all questions were answered. He is currently in no acute distress sitting in the chair.
Review of Systems
General: Other (Negative unless mentioned above)
Objective Data
Data Reviewed
Vital Signs / I&O / Oxygen:
Vital Signs
Temp Pulse Resp BP Pulse Ox
99.4 F 76 22 122/70 99
08/23/24 04:00 08/23/24 09:00 08/23/24 09:00 08/23/24 09:00 08/23/24 09:00
Intake and Output
08/22/24 08/23/24 08/24/24
06:59 06:59 06:59
Intake Total 1178.8 / 1192.6 38.4 / 38.4
Output Total 1460 / 1460 70 / 70
Balance -281.2 / -267.4 -31.6 / -31.6
SaO2 [CPAP] 96
SaO2 [SIMV] 93
SaO2 99
Nasal Cannula flow liters per 6
minute
Physical Exam
General: Respiratory Distress (negative), Comfortable, Chills (negative) and Sweats (negative)
HEENT: Normocephalic and Anicteric
Cardiovascular: S1-S2 and Peripheral Edema (negative)
Respiratory: Wheeze (negative), Crackles (Bibasilar), Rhonchi (negative) and Non-Labored Respirations
GI: Soft, Non Distended, Non Tender and Normal Bowel Sounds
Neurology: Awake, Alert and Tremors (negative)
Skin: Warm, Dry, Cyanosis (negative) and Jaundice (negative)
Labs/Micro/Reports
Lab Data
08/23/24 03:25
08/23/24 03:25
Laboratory Results
08/22/24 08/22/24 08/23/24
10:54 22:45 03:25
PT 16.1 H
INR 1.24
APTT 30.9
pH 7.36 7.42 7.38
pCO2 48 38 39
pO2 91 141 H 99
HCO3 27.1 24.6 23.1
O2 Delivery Level
--- NOTE | 2024-08-23 08:30 | PTCARENOTE ---
Assumed care of patient at 0700. Pt is awake, alert, and oriented. Pt remains SR with HR 70's. BP 107/62 MAP 73. Epicardial V wire in place set to 30/10/2. Pulse oximetry 99% on 13L midflow. Mediastinal chest tubes x 2 and right pleural chest tube
in place to -20 suctions, no sign of air leak or crepitus. Pt tolerating PO. Pt is due to void. Midsternal incision approximated and LAKEISHA. Right leg incision with maximilian wrap in place. Right groin puncture dressing intact. Right IJ cordis in place with
KVO. Pt remains on insulin gtt at this time.
[2024-08-23 08:41] LABS: B.E. - POC 3.7 mmol/L; Glucose - POC 119 mg/dl (70-99); HCO3 - POC 30 mmol/L (21-28); Hematocrit - POC 30 % PCV (42-52); Hemodilution- POC Yes; Ionized Calcium - POC 1.05 mmol/L (1.15-1.33); Lactate - POC < 0.30 mmol/L (0.36-0.75); PCO2 - POC 55 mmHg (35-48); PO2 - POC 411 mmHg (83-108); Potassium - POC 3.8 mmol/L (3.5-5.1); Sodium - POC 143 mmol/L (136-145); Specimen Type - POC Arterial; pH - POC 7.35 (7.35-7.45)
[2024-08-23 08:51] LABS: B.E. - POC 2.6 mmol/L; Glucose - POC 152 mg/dl (70-99); HCO3 - POC 29 mmol/L (21-28); Hematocrit - POC 28 % PCV (42-52); Hemodilution- POC Yes; Hemoglobin Calculated - POC 9.5; Lactate - POC < 0.30 mmol/L (0.36-0.75); O2 Saturation %Calculated-POC 99.9 % (94-98); PCO2 - POC 53 mmHg (35-48); PO2 - POC 370 mmHg (83-108); Potassium - POC 4.5 mmol/L (3.5-5.1); Sodium - POC 142 mmol/L (136-145); Specimen Type - POC Arterial; pH - POC 7.34 (7.35-7.45)
[2024-08-23 08:51] LABS: B.E. - POC 1.8 mmol/L; Glucose - POC 183 mg/dl (70-99); HCO3 - POC 28 mmol/L (21-28); Hematocrit - POC 29 % PCV (42-52); Hemodilution- POC Yes; Hemoglobin Calculated - POC 9.8; Ionized Calcium - POC 1.11 mmol/L (1.15-1.33); Lactate - POC < 0.30 mmol/L (0.36-0.75); O2 Saturation %Calculated-POC 99.9 % (94-98); PCO2 - POC 49 mmHg (35-48); PO2 - POC 359 mmHg (83-108); Potassium - POC 4.4 mmol/L (3.5-5.1); Sodium - POC 142 mmol/L (136-145); Specimen Type - POC Arterial; pH - POC 7.36 (7.35-7.45)
[2024-08-23 08:58] LABS: Glucose - Point of Care 96 mg/dl (70-99)
[2024-08-23] MEDS: PROTONIX 40 MG PO (09:24)
[2024-08-23] MEDS: LOPRESSOR 12.5 MG PO ×2 (09:24→15:35)
[2024-08-23] MEDS: MAGNESIUM OXIDE 500 MG PO (09:24)
[2024-08-23] MEDS: LOW STRENGTH ASPIRIN 81 MG PO (09:25)
[2024-08-23] MEDS: PACERONE 200 MG PO ×3 (09:25→21:32)
[2024-08-23] MEDS: SENOKOT-S 1 TABLET PO ×2 (09:25→20:02)
[2024-08-23] MEDS: LIDOCAINE 4% PATCH TOPICAL (09:25)
[2024-08-23] MEDS: PLAVIX 75 MG PO (09:25)
[2024-08-23] MEDS: NEURONTIN 100 MG PO ×3 (09:25→21:32)
[2024-08-23] MEDS: BACTROBAN 2% OINTMENT 1 APPLIC NASAL ×2 (09:25→20:02)
[2024-08-23] MEDS: NSS IV (09:32)
[2024-08-23] MEDS: FLEXERIL 5 MG PO (09:56)
[2024-08-23 11:01] LABS: Glucose - Point of Care 119 mg/dl (70-99)
--- NOTE | 2024-08-23 11:24 | W.PN.ANS.POP ---
Anesthesia Post Operative
- Anesthesia Post Op Note
Vital Signs Stable-See Nursing Note: Yes
Airway Patent: Yes
Adequate Pain Control: Yes
Change in Mental Status: No
Current Postoperative Nausea & Vomiting: No
Anesthesia Complications: No
General Anesthetic Recall: No
Unplanned Admission: No
Post Op Hydration Adequate: Yes
--- NOTE | 2024-08-23 11:30 | PTCARENOTE ---
Nitro gtt off. Right radial Center d/c'd per order. Pt ambulated with cardiac rehab, tolerated well. Right pleural CT d/c'd per order. V wire insulated. Pt SR with HR 70's-80's. BP 118/58 MAP 75. Pulse oximetry 88-90% on room air, pulse oximetry 94%
on 2L nasal cannula.
--- NOTE | 2024-08-23 12:06 | CM ---
Chart reviewed. Patient OOB ambulating the ocampo. Patient is independent of ADLS, lives with his in a split level, 1 SACHI, 6 steps in between, 0 DME. Plan is for the patient to return home with CT Transitional RN. CM to follow
--- NOTE | 2024-08-23 12:23 | W.PN.CD ---
Today's Communication / Plan
-
Incentive spirometry.
Ambulate.
Wean oxygen.
Anticoagulation at CTS discretion.
Low threshold for diuresis (furosemide 40 mg IV x1).
Impression / Plan
-
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
#CAD
-New diagnosis at the time of cath.
-S/P coronary artery bypass grafting x 1 (SVG to mid RCA) with Dr. Nelson, 08/22/2024.
-Routine post operative management.
-Encourage incentive spirometry.
-Ambulate as appropriate.
-Wean oxygen as tolerated.
-Continue amiodarone, aspirin, clopidogrel, metoprolol.
-Resume high dose, high potency statin.
-Low threshold for diuresis. Consider furosemide 40 mg IV x1.
#Bicuspid aortic valve with critical aortic stenosis
-Chronic, progressive.
-S/P #29 Magana Inspiris Resilia aortic valve SAVR (serial number: [id number]) with Dr. Nelson, 08/22/2024.
-Post operative management as above.
#PAF
-Chronic.
-Currently stable in NSR.
-Rate/rhythm control with amiodarone, metoprolol.
-S/P Encompass MAZE with Dr. Nelson, 08/22/2024.
-CHADS-Vasc = 3 (HTN, Age x1, Vascular Disease).
-S/P LAAE (#35 Atricure Clip, serial #[id number]).
-Therapeutic anticoagulation at CT surgery's discretion.
#HTN
-Chronic, currently normotensive.
-Reintroduce medications as indicated.
#Dyslipidemia
-Chronic, stable.
-High dose, high potency statin.
-Goal LDL < 55.
Subjective/Interval History:
Luis catheter discontinued.
Weight up 0.5 kg from baseline.
Still requiring 11-13 L/m on midflow.
BP generally controlled (99-132).
Some mild hypotension earlier.
Hbg 8.4 from 9.4.
DATA:
Surgery, 08/22/2024:
Procedure(s) Performed:
1. Standard sternotomy with aortic and right atrial cannulation
2. Endoscopic harvesting of the right lower extremity
3. Coronary artery bypass grafting x 1 (Ao to RSVG to mid RCA)
4. Surgical left atrial maze [RF ablation using the encompass clamp]
5. Left atrial appendage exclusion [#35 AtriCure clip, serial #[id number]]
6. Surgical aortic valve replacement [#29 Magana Inspiris Resilia aortic valve, serial number: [id number]]
7. Placement temporary ventricular pacing wires
8. Trans-esophageal echocardiography
Intraoperative DON, 08/22/2024:
CONCLUSIONS
Overall LVEF is approximately 60% with no RWMA.
Severe concentric left ventricular hypertrophy.
Stage II Diastolic dysfunction.
Severely dilated left atrium.
Mildly dilated right atrium.
Severe aortic stenosis.
Moderate aortic insufficiency.
CRISTOFER calculates to 1.0 cm2 by continuity equation.
Max AV gradient measures 123 mmHg, mean is 72 mmHg.
Trace mitral regurgitation.
Mid ascending aorta is dilated measuring 3.8 cm at the level of the RPA.
Moderate sessile atheroma seen in the descending aorta.
Mild sessile atheroma seen in the distal aortic arch.
POST OPERATIVE FINDINGS
The patient underwent an AVR with a size 29 bioprosthetic valve, CABG, MAZE,
and a LA appendage clip. Postop rhythm remain sinus. RV and LV function are
normal. Overall LVEF is at least 65% with no new RWMA. The AVR is well seated
with normal cusp motion. No AI or perivalvular leaks noted. Max AV gradient
measures 12 mmHg, mean is 7 mmHg. Trace MR. TV and PV appear normal. Aortic
scan is unchanged. LA appendage has been adequately clipped with minimal
residual lumen and no color flow distal to the clip.
Cardiac Catheterization, 07/20/2024:
CORONARY ANGIOGRAPHY
Dominance: Right
LM: Large, normal
LAD: Large vessel giving rise to a small D1, small D2, moderate caliber D3, and moderate caliber D4. There is mild nonobstructive disease.
LCx: Large vessel giving rise to a large OM1 and medium caliber LPL branch. There is mild nonobstructive disease.
RCA: Large vessel giving rise to a large caliber RPDA and small RPL branch. There is severe ostial stenosis on the basis of complete lack of catheter reflux during injection with a 6 Slovenian diagnostic catheter and significant dye hang up prior to
catheter withdrawal. There is otherwise mild nonobstructive disease.
Transthoracic Echocardiogram, 07/12/2024:
CONCLUSIONS
Bicuspid aortic valve.
Heavily calcified with severely restricted motion.
Critical aortic stenosis, mean gradient across the valve was 73 mmHg, valve
area by planimetry 0.77 cm2.
Mild aortic insufficiency.
Mildly dilated aortic root up to 4.1 cm.
Physical Exam
Vital Signs/Labs
Vital Signs
Temp Pulse Resp BP Pulse Ox
36.7 C 80 24 132/66 94
08/23/24 08:00 08/23/24 12:00 08/23/24 10:14 08/23/24 12:00 08/23/24 12:00
08/22/24 08/23/24 08/24/24
11:59 11:59 11:59
Actual Weight 93.4 kg 93.9 kg
08/23/24 03:25
08/23/24 03:25
PT 16.1 Sec (11.4-14.6) H 08/22/24 10:54
INR 1.24 08/22/24 10:54
APTT 30.9 Sec (23.4-35.0) 08/22/24 10:54
Magnesium 2.4 mg/dl (1.6-2.3) H 08/23/24 03:25
TSH 0.41 uIU/ml (0.47-4.68) L 08/23/24 03:25
Physical Exam
Constitutional: No acute distress and Comfortable
EENT: Anicteric and Moist mucous membranes
Cardiovascular: Rhythm & rate is regular, Pedal edema is absent, JVD pressure is normal, S1S2 is normal and Murmur/rub/gallop absent
Respiratory: Respiratory effort normal and Other (Decreased throughout.)
GI: Soft, Distention absent, Flat, Non tender and Normal bowel sounds
Neuro/Psych: AO x 3
Data Reviewed
-
Date of Service: August 23, 2024
Medical Decision Making: Reviewed Test Results, Independent Historian Assessment and Test Interpretation
EKG: Tracing Personally Visualized and interpreted and Report Reviewed by me
Echo: Report Reviewed by me
X-Ray/CT/US/MRI/NUC/PET: Image Personally Visualized and interpreted and Report Reviewed by me
Medical Tests (PFT, Pathology etc): Report Reviewed by me
Labs: Labs Reviewed by me
Old Records: Reviewed
[2024-08-23] MEDS: FERRLECIT 110 MG IV (15:35)
--- NOTE | 2024-08-23 16:42 | PTCARENOTE ---
Pt remains SR with HR 80's. BP 137/62 MAP 83. Additional dose 12.5mg Lopressor administered. Pulse oximetry 95% on 2L nasal cannula. Mediastinal chest tubes remain in place to suction, no sign of air leak or crepitus. Pt was OOB in chair, pt got
back to bed without RN assistance. Educated pt regarding safety, instructed pt the necessity to call for RN to ambulated and to get in and out of bed despite if his is present.
[2024-08-23] MEDS: LIPITOR 40 MG PO (18:29)
--- NOTE | 2024-08-23 20:00 | PTCARENOTE ---
Assumed care of the patient at 1900. Patient OOB to chair, accompanying. AOx3, c/o mild pain. Sinus rhythm on the monitor, rate 80's, no edema, pulses palpable, rub heard on auscultation, BPs stable, v wire insulated. On 2LNC, CTx2 to -20 cm
wall suction, lungs dim at the bases. Patient tolerating diet, no nausea, passing flatus. DTV, attempted to void into urinal. All surgical sites intact. RIJ Cordis, PIVx1. Patient and intermittently disconnecting own CT, cordis, and removing O2
when ambulating in the room; patient safety and fall/injury risk discussed at length, patient and indicated understanding. Call melendez within reach, assessment of needs ongoing.
[2024-08-23] MEDS: MAGNESIUM OXIDE PO (20:02)
[2024-08-23] MEDS: LOPRESSOR 25 MG PO (20:02)
[2024-08-23] MEDS: MUCINEX 600 MG PO (23:11)
[2024-08-24] VITALS (34 sets, daily range): BP systolic 117–161; BP diastolic 61–79; PULSE 90; O2SAT 94–96; BMI 30.9
--- NOTE | 2024-08-24 | PTCARENOTE ---
Patient sleeping between care, PRN pain medication given, see MAR. VSS; attempting to void, bladder scanned for 371, CVPA aware.
[2024-08-24] MEDS: FLOMAX 0.4 MG PO ×2 (03:29→09:43)
[2024-08-24] MEDS: LR 250 IV (03:29)
--- NOTE | 2024-08-24 03:59 | PTCARENOTE ---
Patient straight cathed at 0245 for 475 - bladder scanned for 471. Urine concentrated, dark, tea colored. CVPA aware, patient given 250 LR bolus. Patient OOB to toilet PRN.
[2024-08-24 04:16] LABS: Hematocrit 26.4 % (39.0-52.0); Hemoglobin 8.6 g/dL (13.0-18.0); Mean Corp Hgb Conc. 32.6 g/dL (33.0-37.0); Mean Corpuscular Hgb 27.7 pg (27.0-31.0); Mean Corpuscular Volume 84.9 fL (80.0-94.0); Mean Platelet Volume 11.4 fL (7.4-10.4); Platelet Count 151 10^3/uL (130-400); Red Blood Cell Count 3.11 10^6/uL (4.70-6.10); Red Cell Dist. Width 13.2 % (11.5-14.5); White Blood Cell Count 11.5 10^3/uL (4.8-10.8)
[2024-08-24] MEDS: CARDENE 200 IV (04:36)
[2024-08-24 04:46] LABS: Blood Urea Nitrogen 23 mg/dl (9-20); Calcium 8.3 mg/dl (8.4-10.2); Carbon Dioxide 25 mmol/L (22-30); Chloride 107 mmol/L (98-107); Estimated Creatinine Clearance 90 ml/min; Glucose 120 mg/dl (70-99); Magnesium 2.5 mg/dl (1.6-2.3); Potassium 4.3 mmol/L (3.5-5.1); Sodium 139 mmol/L (135-145); eGFR > 60.00
--- NOTE | 2024-08-24 04:57 | PTCARENOTE ---
Patient hypertensive, CVPA notified. Cardene gtt initiated. Pending Lopressor administration.
[2024-08-24] MEDS: SYNTHROID 125 MCG PO (05:00)
[2024-08-24] MEDS: LOPRESSOR 25 MG PO (05:00)
[2024-08-24] MEDS: TYLENOL 1000 MG PO ×3 (05:00→22:39)
--- NOTE | 2024-08-24 07:55 | W.PN.CT ---
Today's Communication / Plan
-
-pod #2
-hemodynamically and neurologically stable.
-unable to void after Luis was dcd - straight cathed for 475 cc at 2:30am. Gave 250 LR, started Flomax
-gave BB early this am for HTN
-CT outputs: 2 meds 95/235 in 12/24 hrs
-wean off O2 - pOx 95% on 3L
-current meds (ASA, Plavix, Lopressor, Amio, Lipitor, Protonix)
-encourage IS, OOB
Assessment / Plan
-
- Aortic valve stenosis with bicuspid valve morphology with single-vessel coronary artery disease and new onset atrial fibrillation- s/p Surgical aortic valve replacement [29 mm Magana Inspiris Resilia biological valve]; CABG x 1 (Ao to RSVG to mid
RCA); EVH of RLE; LAAE [35 mm device] by Dr. Nelson on 08/22/24, pod #2
- Intraop DON: LVEF on intraoperative DON was 60% and 70% post procedure of note, he had a very high critical levels of aortic valve stenosis preoperatively while under anesthesia. His mean gradient across his valve was in the 70s and his LV
pressures were in the 200s. There was a moderate degree of aortic valve insufficiency. There was no prosthetic PVL or AI. Mean gradient across the prosthesis was 6 mmHg. There were no new regional wall motion abnormalities. His left atrial
appendage was verified to be free of any thrombus or debris preoperatively and found to be totally occlusive postoperatively using a 35mm device.
- Critical aortic Valve Stenosis with Bicuspid Valve Morphology (Type 1)
- Single-vessel coronary artery disease
- New onset atrial fibrillation, paroxysmal
- Hypertension
- Hyperlipidemia
- Hemorrhoids
- Former smoker
- Class 1 obesity, BMI 30
- Hypothyroidism
- Acute postop blood loss anemia
- Acute postop atelectasis
- Acute postop hypovolemia with subsequent hypervolemia
- Acute urinary retention
Discussed patient care with: Nursing and Care Team
Subjective
-
Date of Service: August 24, 2024
Objective Data
-
Lab Results
08/24/24 03:39
08/24/24 03:39
PT 16.1 Sec (11.4-14.6) H 08/22/24 10:54
INR 1.24 08/22/24 10:54
APTT 30.9 Sec (23.4-35.0) 08/22/24 10:54
Vital Signs
Vital Signs
Temp Pulse Resp BP Pulse Ox
98.3 F 83 16 158/69 95
08/24/24 04:00 08/24/24 05:00 08/24/24 04:00 08/24/24 05:00 08/24/24 05:00
CT Intake/Output/Weight
08/23/24 08/24/24 08/24/24
18:59 06:59 18:59
Intake Total 249.2 / 599.2 350 / 599.2
Output Total 215 / 785 570 / 785
Balance 34.2 / -185.8 -220 / -185.8
SaO2: 95
Physical Exam
-
General: Awake and AOx3
Cardiovascular: Regular rate & rhythm, No Murmurs and Rub
Respiratory: Decreased Breath Sounds
Sternum: Stable
Incision: Clean, Dry and Intact
Abdomen: soft, nontender, nondistended, +decreased bowel sounds
Extremities: No Edema (1+ DPs b/l)
Data Reviewed
-
Lab Results: Results Reviewed
Medications: Active Meds Reviewed
Chest X-Ray: Report Reviewed and Image Reviewed
ECG: Report Reviewed and Image Reviewed
--- NOTE | 2024-08-24 08:04 | W.PN.CD ---
Today's Communication / Plan
-
Furosemide 40 mg IV x1.
D/C metoprolol.
Start carvedilol 12.5 mg BID.
Monitor BP after carvedilol and start to reintroduce home medications (losartan and HCTZ).
Pain control.
Incentive spirometry.
Ambulate.
Impression / Plan
-
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
#CAD
-New diagnosis at the time of cath.
-S/P coronary artery bypass grafting x 1 (SVG to mid RCA) with Dr. Nelson, 08/22/2024.
-Routine post operative management.
-Encourage incentive spirometry.
-Ambulate as appropriate.
-Wean oxygen as tolerated.
-Continue amiodarone, aspirin, clopidogrel.
-Resume high dose, high potency statin.
-Furosemide 40 mg IV x1 today.
#Bicuspid aortic valve with critical aortic stenosis
-Chronic, progressive.
-S/P #29 Magana Inspiris Resilia aortic valve SAVR (serial number: [id number]) with Dr. Nelson, 08/22/2024.
-Post operative management as above.
#PAF
-Chronic.
-Currently stable in NSR.
-Rate/rhythm control with amiodarone. Adding carvedilol.
-S/P [employer]compass MAZE with Dr. Nelson, 08/22/2024.
-CHADS-Vasc = 3 (HTN, Age x1, Vascular Disease).
-S/P LAAE (#35 Atricure Clip, serial #[id number]).
-Therapeutic anticoagulation at CT surgery's discretion.
#HTN
-Chronic, currently hypertensive requiring nicardipine gtt.
-D/C metoprolol and start carvedilol 12.5 mg BID.
-After carvedilol, start to reintroduce home BP meds (losartan/HCTZ).
#Dyslipidemia
-Chronic, stable.
-High dose, high potency statin.
-Goal LDL < 55.
Subjective/Interval History:
Luis catheter discontinued yesterday - patient could not void and bladder scanned for 470 mL. Straight cathed.
Hypertensive this morning. Nicardipine gtt started.
Weight up 0.8 kg from yesterday.
SaO2 95% on 3LNC.
DATA:
Surgery, 08/22/2024:
Procedure(s) Performed:
1. Standard sternotomy with aortic and right atrial cannulation
2. Endoscopic harvesting of the right lower extremity
3. Coronary artery bypass grafting x 1 (Ao to RSVG to mid RCA)
4. Surgical left atrial maze [RF ablation using the encompass clamp]
5. Left atrial appendage exclusion [#35 AtriCure clip, serial #[id number]]
6. Surgical aortic valve replacement [#29 Magana Inspiris Resilia aortic valve, serial number: [id number]]
7. Placement temporary ventricular pacing wires
8. Trans-esophageal echocardiography
Intraoperative DON, 08/22/2024:
CONCLUSIONS
Overall LVEF is approximately 60% with no RWMA.
Severe concentric left ventricular hypertrophy.
Stage II Diastolic dysfunction.
Severely dilated left atrium.
Mildly dilated right atrium.
Severe aortic stenosis.
Moderate aortic insufficiency.
CRISTOFER calculates to 1.0 cm2 by continuity equation.
Max AV gradient measures 123 mmHg, mean is 72 mmHg.
Trace mitral regurgitation.
Mid ascending aorta is dilated measuring 3.8 cm at the level of the RPA.
Moderate sessile atheroma seen in the descending aorta.
Mild sessile atheroma seen in the distal aortic arch.
POST OPERATIVE FINDINGS
The patient underwent an AVR with a size 29 bioprosthetic valve, CABG, MAZE,
and a LA appendage clip. Postop rhythm remain sinus. RV and LV function are
normal. Overall LVEF is at least 65% with no new RWMA. The AVR is well seated
with normal cusp motion. No AI or perivalvular leaks noted. Max AV gradient
measures 12 mmHg, mean is 7 mmHg. Trace MR. TV and PV appear normal. Aortic
scan is unchanged. LA appendage has been adequately clipped with minimal
residual lumen and no color flow distal to the clip.
Cardiac Catheterization, 07/20/2024:
CORONARY ANGIOGRAPHY
Dominance: Right
LM: Large, normal
LAD: Large vessel giving rise to a small D1, small D2, moderate caliber D3, and moderate caliber D4. There is mild nonobstructive disease.
LCx: Large vessel giving rise to a large OM1 and medium caliber LPL branch. There is mild nonobstructive disease.
RCA: Large vessel giving rise to a large caliber RPDA and small RPL branch. There is severe ostial stenosis on the basis of complete lack of catheter reflux during injection with a 6 Spanish diagnostic catheter and significant dye hang up prior to
catheter withdrawal. There is otherwise mild nonobstructive disease.
Transthoracic Echocardiogram, 07/12/2024:
CONCLUSIONS
Bicuspid aortic valve.
Heavily calcified with severely restricted motion.
Critical aortic stenosis, mean gradient across the valve was 73 mmHg, valve
area by planimetry 0.77 cm2.
Mild aortic insufficiency.
Mildly dilated aortic root up to 4.1 cm.
Physical Exam
Vital Signs/Labs
Vital Signs
Temp Pulse Resp BP Pulse Ox
36.8 C 83 16 158/69 95
08/24/24 04:00 08/24/24 05:00 08/24/24 04:00 08/24/24 05:00 08/24/24 08:01
08/22/24 08/23/24 08/24/24
11:59 11:59 11:59
Actual Weight 93.4 kg 93.9 kg 94.7 kg
08/24/24 03:39
08/24/24 03:39
PT 16.1 Sec (11.4-14.6) H 08/22/24 10:54
INR 1.24 08/22/24 10:54
APTT 30.9 Sec (23.4-35.0) 08/22/24 10:54
Magnesium 2.5 mg/dl (1.6-2.3) H 08/24/24 03:39
TSH 0.41 uIU/ml (0.47-4.68) L 08/23/24 03:25
Physical Exam
Constitutional: No acute distress and Comfortable
EENT: Anicteric and Moist mucous membranes
Cardiovascular: Rhythm & rate is regular, Pedal edema is absent, JVD pressure is normal, S1S2 is normal and Murmur/rub/gallop absent
Respiratory: Respiratory effort normal and Other (Decreased at the bases.)
GI: Soft, Distention absent, Flat, Non tender and Normal bowel sounds
Neuro/Psych: AO x 3
Data Reviewed
-
Date of Service: August 24, 2024
Medical Decision Making: Reviewed Test Results, Independent Historian Assessment and Test Interpretation
EKG: Tracing Personally Visualized and interpreted and Report Reviewed by me
Echo: Report Reviewed by me
X-Ray/CT/US/MRI/NUC/PET: Image Personally Visualized and interpreted and Report Reviewed by me
Medical Tests (PFT, Pathology etc): Report Reviewed by me
Labs: Labs Reviewed by me
Old Records: Reviewed
--- NOTE | 2024-08-24 09:00 | PTCARENOTE ---
AAOx4 w/ complaints of pain OOB to chair; NSR VSS; x4 pulses; 3L nc decreased in the bases; GI and WNl, all surgical incisions CDI; RIJC and PIV wnl; CTx2 removed pacing wires removed; see worklist for detailed assessment
[2024-08-24] MEDS: BACTROBAN 2% OINTMENT 1 APPLIC NASAL ×2 (09:42→19:48)
[2024-08-24] MEDS: LIDOCAINE 4% PATCH 1 PATCH TOPICAL (09:42)
[2024-08-24] MEDS: PLAVIX 75 MG PO (09:42)
[2024-08-24] MEDS: PROTONIX 40 MG PO (09:42)
[2024-08-24] MEDS: PACERONE 200 MG PO ×3 (09:42→22:39)
[2024-08-24] MEDS: MAGNESIUM OXIDE 500 MG PO ×2 (09:43→19:47)
[2024-08-24] MEDS: ROXICODONE 5 MG PO ×2 (09:43→22:39)
[2024-08-24] MEDS: LOW STRENGTH ASPIRIN 81 MG PO (09:43)
[2024-08-24] MEDS: NEURONTIN 100 MG PO ×3 (09:43→22:38)
[2024-08-24] MEDS: MUCINEX 600 MG PO ×2 (09:43→19:48)
[2024-08-24] MEDS: SENOKOT-S 1 TABLET PO (09:43)
[2024-08-24] MEDS: LASIX 20 MG IV (09:44)
[2024-08-24] MEDS: NSS 500 IV (10:15)
--- NOTE | 2024-08-24 12:30 | PN.CDI ---
CDI
- -
CDI:
Physician Documentation Request
Admit Date: 08/22/24 04:[address] Surgery,
Clinical Indicators:
Patient admitted with aortic stenosis and CAD; s/p AVR, CABG x 1 08/22.
08/23 PN, 'some hypoxia, suspect d/t splinting. pOx 97% on 10L partial rebreather'
08/23(11:30) RN note, 'Pulse oximetry 88-90% on room air, pulse oximetry 94% on 2L nasal cannula. '
02 requirements:
08/22/24
21:00 08/22/24
23:00 08/23/24
07:00
Flow liters per minute # 5 13
Nasal Cannula flow liters per minute 6
08/23/24
08:30 08/23/24
15:50 08/24/24
00:15
Flow liters per minute # 8
Nasal Cannula flow liters per minute 2 3
Please clarify which of the following accurately represents the patient's respiratory status following surgery:
Acute postoperative pulmonary insufficiency
Hypoxia only
Other, please specify
Additional information for Pulmonary Insufficiency:
Consider when patients require termite treater helper oxygen therapy postoperatively
Weaned off oxygen initially then requiring supplemental oxygen
No other definitive diagnosis to support the need for oxygen (COPD exac, CHF etc.)
Unable to wean from vent
When criteria for respiratory failure not present
May extend stay or require additional resources; may need home O2
Additional information for Respiratory Failure:
Recognized criteria for Respiratory Failure (Source: [facility] Mar 2013)
ABGs: (1 or more) Symptoms Indicate:
1. p)2 <60 or RA SPO2 <91% on RA 1. Tachypnea, SOB, dyspnea 1. Type as:
2. pCO2 50 and pH <7.35 2. Use of accessory muscles a. Hypoxic
3. pO2 decrease of pCO2 increase by 3. Pallor or cyanosis b. Hypercapnic
10 mmHg from baseline if known 4. Anxiety or restlessness 2. If due to procedure or due to another cause
5. Unable to speak in full sentences
Supplemental O2 of > 40% Intubation is not required
Use of terms such as suspected, likely, concern for, or probable (associated with a specific diagnosis that is being evaluated, monitored, or treated as if it exists) are acceptable and can be coded in the inpatient setting, when documented at the
time of discharge.
Thank you,
Radha Mcgee RN BSN
CDI Specialist
available via tiger text
Please use your independent medical judgment in providing your response.
--- NOTE | 2024-08-24 13:00 | PTCARENOTE ---
no change from previous assessment
--- NOTE | 2024-08-24 14:44 | CM ---
Chart reviewed. Patient is independent of ADLS, lives with his in a split level house, 1 SACHI, 0 DME. Plan is for the patient to return home with CT Transitional RN. CM to follow
[2024-08-24] MEDS: FERRLECIT 110 MG IV (14:46)
[2024-08-24] MEDS: LIPITOR 40 MG PO (18:18)
--- NOTE | 2024-08-24 18:34 | PTCARENOTE ---
no change from previous assessment
[2024-08-24] MEDS: SENOKOT-S PO (19:47)
[2024-08-24] MEDS: COREG 12.5 MG PO (19:47)
--- NOTE | 2024-08-24 20:30 | PTCARENOTE ---
Assumed care of patient at 1900. Patient found oob in chair at time of assessment with spouse at bedside. Patient is AOx4, follows commands appropriately, moves all extremities. Lung sounds are diminished at the bases, saO2 94% on 2L via NC. Heart
sounds are audible, SR on the monitor, patient has normal palpable pulses, and no observable edema. Patient has active BS in all four quadrants, reports loose BMs during the day, voiding clear teodora urine. Patient has sternal incision approx with
surg adhesive LAKEISHA, R groin puncture with 4x4 gauze dressing CDI, and RLE incision approx with surg adhesive LAKEISHA. Patient has R IJ cordis receiving KVO and R AC PIV 20G. No c/o pain. Call melendez within reach.
[2024-08-25] VITALS (17 sets, daily range): BP systolic 106–139; BP diastolic 61–86; PULSE 85; O2SAT 92–94; BMI 30.8
[2024-08-25 04:06] LABS: Hematocrit 24.1 % (39.0-52.0); Hemoglobin 7.9 g/dL (13.0-18.0); Mean Corp Hgb Conc. 32.8 g/dL (33.0-37.0); Mean Corpuscular Hgb 27.6 pg (27.0-31.0); Mean Corpuscular Volume 84.3 fL (80.0-94.0); Mean Platelet Volume 10.9 fL (7.4-10.4); Platelet Count 142 10^3/uL (130-400); Red Blood Cell Count 2.86 10^6/uL (4.70-6.10); White Blood Cell Count 8.9 10^3/uL (4.8-10.8)
[2024-08-25 04:19] LABS: Blood Urea Nitrogen 15 mg/dl (9-20); Calcium 8.1 mg/dl (8.4-10.2); Carbon Dioxide 28 mmol/L (22-30); Chloride 107 mmol/L (98-107); Estimated Creatinine Clearance 102 ml/min; Glucose 117 mg/dl (70-99); Magnesium 2.3 mg/dl (1.6-2.3); Potassium 3.8 mmol/L (3.5-5.1); Sodium 139 mmol/L (135-145); eGFR > 60.00
--- NOTE | 2024-08-25 07:26 | W.PN.CT ---
Today's Communication / Plan
-
-pod#3
-looks and feels better overall
-urinary retention resolved
-diuresed well with 20 iv Lasix (UO 1000)- continue
-current meds (ASA, Plavix, Lipitor, Coreg 12.5 bid, Amio, Protonix, Mucinex, Flomax)
-encourage IS, OOB
Assessment / Plan
-
- Aortic valve stenosis with bicuspid valve morphology with single-vessel coronary artery disease and new onset atrial fibrillation- s/p Surgical aortic valve replacement [29 mm Magana Inspiris Resilia biological valve]; CABG x 1 (Ao to RSVG to mid
RCA); EVH of RLE; LAAE [35 mm device] by Dr. Nelson on 08/22/24, pod #3
- Intraop DON: LVEF on intraoperative DON was 60% and 70% post procedure of note, he had a very high critical levels of aortic valve stenosis preoperatively while under anesthesia. His mean gradient across his valve was in the 70s and his LV
pressures were in the 200s. There was a moderate degree of aortic valve insufficiency. There was no prosthetic PVL or AI. Mean gradient across the prosthesis was 6 mmHg. There were no new regional wall motion abnormalities. His left atrial
appendage was verified to be free of any thrombus or debris preoperatively and found to be totally occlusive postoperatively using a 35mm device.
- Critical aortic Valve Stenosis with Bicuspid Valve Morphology (Type 1)
- Single-vessel coronary artery disease
- New onset atrial fibrillation, paroxysmal
- Hypertension
- Hyperlipidemia
- Hemorrhoids
- Former smoker
- Class 1 obesity, BMI 30
- Hypothyroidism
- Acute postop blood loss anemia
- Acute postop atelectasis
- Acute postop hypovolemia with subsequent hypervolemia
- Acute urinary retention
Discussed patient care with: Nursing and Care Team
Subjective
-
Date of Service: August 25, 2024
Objective Data
-
PT 16.1 Sec (11.4-14.6) H 08/22/24 10:54
INR 1.24 08/22/24 10:54
APTT 30.9 Sec (23.4-35.0) 08/22/24 10:54
Vital Signs
Vital Signs
Temp Pulse Resp BP Pulse Ox
99.0 F 79 20 120/62 94
08/24/24 22:49 08/25/24 01:00 08/24/24 22:49 08/24/24 22:49 08/25/24 01:00
CT Intake/Output/Weight
08/24/24 08/24/24 08/25/24
06:59 18:59 06:59
Intake Total 350 / 599.2 10 80 / 90
Output Total 570 / 785 1010 / 1910 900 / 1910
Balance -220 / -185.8 -1000 / -1820 -820 / -1820
SaO2: 94
Physical Exam
-
General: Awake and AOx3
Cardiovascular: Regular rate & rhythm, No Murmurs and No Rub
Respiratory: Rales (at bases) and Decreased Breath Sounds
Sternum: Stable
Incision: Clean, Dry and Intact
Extremities: No Edema
Abdomen: soft, nontender, nondistended, + bowel sounds, + flatus, no nausea
Data Reviewed
-
Lab Results: Results Reviewed
Medications: Active Meds Reviewed
Chest X-Ray: Report Reviewed and Image Reviewed
ECG: Report Reviewed and Image Reviewed
[2024-08-25] MEDS: SYNTHROID 137 MCG PO (07:50)
[2024-08-25] MEDS: TYLENOL PO ×3 (07:50→20:57)
[2024-08-25] MEDS: LASIX 40 MG IV (07:51)
[2024-08-25] MEDS: SYNTHROID PO (07:55)
[2024-08-25] MEDS: FLOMAX 0.4 MG PO (08:01)
[2024-08-25] MEDS: PACERONE 200 MG PO ×3 (08:01→20:57)
[2024-08-25] MEDS: PROTONIX 40 MG PO (08:01)
[2024-08-25] MEDS: COREG 12.5 MG PO ×2 (08:01→09:12)
[2024-08-25] MEDS: SENOKOT-S 1 TABLET PO (08:02)
[2024-08-25] MEDS: LIDOCAINE 4% PATCH TOPICAL (08:02)
[2024-08-25] MEDS: PLAVIX 75 MG PO (08:02)
[2024-08-25] MEDS: LOW STRENGTH ASPIRIN 81 MG PO (08:02)
[2024-08-25] MEDS: MUCINEX 600 MG PO ×2 (08:02→20:40)
[2024-08-25] MEDS: NEURONTIN 100 MG PO ×3 (08:02→20:57)
[2024-08-25] MEDS: MAGNESIUM OXIDE 500 MG PO ×2 (08:05→20:40)
[2024-08-25] MEDS: BACTROBAN 2% OINTMENT 1 APPLIC NASAL ×2 (08:05→20:40)
[2024-08-25] MEDS: NSS IV (09:57)
--- NOTE | 2024-08-25 10:00 | PTCARENOTE ---
Assumed patient care from nightshift RN. Patient OOB in chair. Fully alert and oriented and moves all extremities. Pt on room air with O2 sat 93%. Lungs diminished in bilateral bases. NSR, palpable pulses in upper and lower bilateral extremities.
Bowel sounds present. Voiding clear urine in bathroom. Patient as sternal incision MRI TECH, R groin puncture w 4x4 gauze CDI, RLE incision MRI TECH. RIJ cordis intact. Denies pain.
[2024-08-25] MEDS: KCL 40 MEQ PO (10:27)
--- NOTE | 2024-08-25 13:31 | PTCARENOTE ---
VSS. Patient frequently ambulating and using IS. Tolerating meals. Denies pain. Worked with cardiac rehab. Potassium replacement given.
[2024-08-25] MEDS: FERRLECIT 110 MG IV (14:25)
--- NOTE | 2024-08-25 16:58 | PTCARENOTE ---
RIJ cordis discontinued. Patient very independent with ambulation. Vital signs stable. Remains on room air. OOB in hallways and using I.S frequently.
[2024-08-25] MEDS: LIPITOR 40 MG PO (18:04)
--- NOTE | 2024-08-25 20:00 | PTCARENOTE ---
assumed care of pt from previous RN. pt A&Ox4, sitting on edge of bed at time of assessment. pt independent w/ ambulation. SR on tele-monitor. POX 94% on RA. abd s/n, +BS. voiding clear, yellow urine. all surgical sites stable, CDI. PIV intact. see
worklist for complete nursing assessment, interventions, VS, and I&Os.
[2024-08-25] MEDS: SENOKOT-S PO ×2 (20:40→20:42)
[2024-08-25] MEDS: COREG 25 MG PO (20:40)
--- NOTE | 2024-08-25 22:12 | PTCARENOTE ---
Pt transferred to 7 from 2262. Pt is AAOx3 SR on the monitor denies pain at bedside. Surgical incisions c/d/i. Call melendez within reach.
[2024-08-26 02:30] VITALS: BMI 30.9
[2024-08-26 02:31] VITALS: BP 138/73
[2024-08-26 02:54] LABS: Hematocrit 24.6 % (39.0-52.0); Hemoglobin 8.3 g/dL (13.0-18.0); Mean Corp Hgb Conc. 33.7 g/dL (33.0-37.0); Mean Corpuscular Volume 83.1 fL (80.0-94.0); Mean Platelet Volume 10.8 fL (7.4-10.4); Platelet Count 178 10^3/uL (130-400); Red Blood Cell Count 2.96 10^6/uL (4.70-6.10); White Blood Cell Count 8.2 10^3/uL (4.8-10.8)
[2024-08-26 03:02] LABS: Blood Urea Nitrogen 13 mg/dl (9-20); Calcium 8.3 mg/dl (8.4-10.2); Carbon Dioxide 25 mmol/L (22-30); Chloride 106 mmol/L (98-107); Estimated Creatinine Clearance 116 ml/min; Glucose 119 mg/dl (70-99); Magnesium 2.2 mg/dl (1.6-2.3); Potassium 3.9 mmol/L (3.5-5.1); Sodium 137 mmol/L (135-145); eGFR > 60.00
--- NOTE | 2024-08-26 06:01 | W.PN.CT ---
Today's Communication / Plan
-
-pod #3
-no overnight issues
-now voiding with addition of Flomax
-changed BB to carvedilol, now up to 25 mg, BP improving
-CTs out
-current meds (ASA, Plavix, carvedilol, Amio, Lipitor, Protonix)
-encourage IS, OOB
Assessment / Plan
-
- Aortic valve stenosis with bicuspid valve morphology with single-vessel coronary artery disease and new onset atrial fibrillation- s/p Surgical aortic valve replacement [29 mm Magana Inspiris Resilia biological valve]; CABG x 1 (Ao to RSVG to mid
RCA); EVH of RLE; LAAE [35 mm device] by Dr. Nelson on 08/22/24, pod #4
- Intraop DON: LVEF on intraoperative DON was 60% and 70% post procedure of note, he had a very high critical levels of aortic valve stenosis preoperatively while under anesthesia. His mean gradient across his valve was in the 70s and his LV
pressures were in the 200s. There was a moderate degree of aortic valve insufficiency. There was no prosthetic PVL or AI. Mean gradient across the prosthesis was 6 mmHg. There were no new regional wall motion abnormalities. His left atrial
appendage was verified to be free of any thrombus or debris preoperatively and found to be totally occlusive postoperatively using a 35mm device.
- Critical aortic Valve Stenosis with Bicuspid Valve Morphology (Type 1)
- Single-vessel coronary artery disease
- New onset atrial fibrillation, paroxysmal
- Hypertension
- Hyperlipidemia
- Hemorrhoids
- Former smoker
- Class 1 obesity, BMI 30
- Hypothyroidism
- Acute postop blood loss anemia
- Acute postop atelectasis
- Acute postop hypovolemia with subsequent hypervolemia
- Acute urinary retention
Subjective
-
Date of Service: August 26, 2024
Objective Data
-
Lab Results
08/26/24 02:37
08/26/24 02:37
PT 16.1 Sec (11.4-14.6) H 08/22/24 10:54
INR 1.24 08/22/24 10:54
APTT 30.9 Sec (23.4-35.0) 08/22/24 10:54
Vital Signs
Vital Signs
Temp Pulse Resp BP Pulse Ox
98.2 F 76 16 138/73 93
08/26/24 02:31 08/26/24 02:31 08/26/24 02:31 08/26/24 02:31 08/26/24 02:31
CT Intake/Output/Weight
08/25/24 08/25/24 08/26/24
06:59 18:59 06:59
Intake Total 130 / 140
Output Total 1250 / 2260 1000 / 1900 900 / 1900
Balance -1120 / -2120 -1000 / -1900 -900 / -1900
SaO2: 93
Physical Exam
-
General: Awake, Oriented and AOx3
Cardiovascular: Regular rate & rhythm, No Murmurs and No Rub
Respiratory: Clear and Equal
Sternum: Stable
Incision: Clean, Dry and Intact
Extremities: No Edema and No Erythema
[2024-08-26] MEDS: TYLENOL 1000 MG PO (06:13)
[2024-08-26] MEDS: SYNTHROID 137 MCG PO (06:14)
[2024-08-26 08:16] VITALS: BP 145/76
[2024-08-26] MEDS: NEURONTIN 100 MG PO (08:24)
[2024-08-26] MEDS: MAGNESIUM OXIDE 500 MG PO (08:24)
[2024-08-26] MEDS: MUCINEX 600 MG PO (08:24)
[2024-08-26] MEDS: SENOKOT-S 1 TABLET PO (08:25)
[2024-08-26] MEDS: PACERONE 200 MG PO ×2 (08:25→10:52)
[2024-08-26] MEDS: PROTONIX 40 MG PO (08:25)
[2024-08-26] MEDS: COREG 25 MG PO ×2 (08:25→10:52)
[2024-08-26] MEDS: PLAVIX PO ×2 (08:25→10:57)
[2024-08-26] MEDS: FLOMAX 0.4 MG PO (08:25)
[2024-08-26] MEDS: LOW STRENGTH ASPIRIN 81 MG PO (08:26)
[2024-08-26] MEDS: LIDOCAINE 4% PATCH TOPICAL (08:26)
[2024-08-26] MEDS: KCL 40 MEQ PO (08:36)
--- NOTE | 2024-08-26 09:26 | W.DCSUMMARY ---
Discharge Summary
Discharge Data
Date of Admission: 08/22/24
Date of Discharge: 08/26/24
-
Pending Results: No
Hospital Course
Primary care physician: Clara
Outpatient scrapper: Shar Lamb
Inpatient consultants: cardiology- CBC
Procedures:
1. 08/22/24 Aortic valve replacement #29 inspiris, CABG x1 (SVG-mRCA), encompass MAZE, ELAA #35 clip
Primary Diagnosis:
1. critical aortic stenosis
2. coronary artery disease
Secondary Diagnoses:
1. hypertension
2. hyperlipidemia
3. hypothyroidism
4. paroxysmal atrial fibrillation, no recurrence postop
5. former smoker
6. class I obesity, BMI 30.8
7. postop acute urinary retention req straight cath x1, started on flomax
8. postop acute blood loss anemia, stable
HPI: Patient is a 69-year-old male who initially presented to his scrapper with complaints of palpitations and was noted to have new onset atrial fibrillation, he was also noted to have a significant murmur and subsequent echo demonstrated
critical aortic stenosis with a mean gradient of 73 mmHg. Patient was subsequently cathed and noted to have single-vessel coronary artery disease. He was therefore referred for surgical evaluation. After all preoperative workup was completed he
was deemed a suitable candidate to undergo the procedure.
Hospital course: Patient was brought in electively on 08/22/2024 where he underwent aortic valve replacement with #29 Inspiris, CABG x 1 with saphenous vein graft to mid RCA, encompass maze and left atrial appendage clip without any perioperative
complications. He was transferred to CVICU per protocol on Precedex, insulin, +/- Cardene. He remained hemodynamically stable and extubated that afternoon approximately 1:30 PM. Patient matthew stable overnight on postop day 1 he was de-lined and
pleural chest tube was removed without incident. Beta-elieser was titrated up. Patient was unable to void after Luis removal, he was straight cathed x 1 and initiated on Flomax with no further issues. On postop day 2 temporary pacing wire was
discontinued without incident, and mediastinal drains were removed after that. Beta-elieser converted to Coreg for better blood pressure control and he was diuresed with low-dose IV Lasix. Postop day 3 Cork right was titrated up and he is
continued with gentle diuresis. Patient continues to progress well with ambulation. On postop day 4 vitals remained stable he is in sinus rhythm. He is ambulatory and pain is well-controlled. 2 view chest x-ray demonstrates small bilateral
effusions, p.o. Lasix given prior to discharge. Patient is discharged to home in the care of his family with close follow-up with the transitional care nurse from [facility].
Home medication changes: Patient did not have any postoperative atrial fibrillation, he will continue amiodarone 200 mg p.o. twice daily x 2 weeks and then daily after that at the discretion of his scrapper. He will resume aspirin and Xarelto
for his preoperative paroxysmal atrial fibrillation. His losartan/hctz was held at the time of discharge in favor of titration of Coreg, this can be added back as his blood pressure allows. Atenolol has been stopped. New prescription for Lasix
and potassium supplementation for the next 5 days for postop volume overload. Prescription given for Flomax for the next 2 weeks for acute urinary retention.
Discharge Plan
-
Patient Disposition: Home (Routine Discharge)
Discharge Diagnosis/Procedures: Aortic Valve Replacement, CABG x 1, MAZE, left atrial appendage clip
Condition: Good
Diet: Low Cholesterol and Low Sodium
Activity: No strenuous activity
Driving Restrictions: Not until seen by your Dr
Bathing Restrictions: OK to Shower
Other Services: Cardiac Rehab
Specialty Instructions: Weigh Daily- Call MD for wt gain/loss 3 lbs overnight/5 lbs in 1 week
Activity Restrictions/Additional Instructions:
ACTIVITY:
-No strenuous activity: no heavy lifting, pushing, pulling anything over 15 pounds for one month
-continue to use stairs as tolerated
DRIVING RESTRICTIONS:
-No driving for one month or until approved by your surgeon
WOUND CARE:
-Shower daily. Use soap & water.
-No lotions, creams or powders on incision area.
DIET:
-continue a low fat/low cholesterol diet.
CARDIAC REHAB:
-Please make appointment to start in 5-6 weeks with your local hospital program. (See Cardiac Rehabilitation Discharge Booklet).
Please call Tomas Tabares to get scheduled for Cardiac Rehab. P: [phone]
SPECIALTY INSTRUCTIONS:
-Weigh yourself daily. Call your physician for any weight gain/loss of 3 lbs overnight or 5 lbs in one week.
-REPORT any clicking noise or uneven appearance of your sternum to your surgeon immediately.
-If you smoke, you are instructed to quit. The [place] smoking hotline phone number is [phone]
Referrals:
CT Transitional Care Nurse [Outside] (The Cardiothoracic Transitional Care Nurse will call you to set up a visit in 1-2 days.)
Danny Boo MD [Active] - in two to four weeks
(Due to hypoxia with high oxygen requirements on the evening of 08/22 - 08/23/2024.
Perform full PFT on the day of office and also consider 6-minute walk test)
Veto Elizabeth MD [Family Provider] -
Shar Lamb MD [Active] - 10/03/24 3:00 pm
Zachery Nelson MD [Active] - 09/10/24 3:00 pm
Prescriptions:
New
tamsulosin 0.4 mg Capsule
0.4 mg PO DAILY Qty: 14 0RF
carvedilol 25 mg Tablet
25 mg PO BID Qty: 60 0RF
amiodarone 200 mg Tablet
200 mg PO BID Qty: 60 0RF
Rx Instructions:
take twice daily for 2 weeks (until 09/09), then once daily until otherwise directed
acetaminophen 325 mg Tablet
650 mg PO Q4HPRN PRN (Reason: mild pain,headache,temp >101F ) Qty: 0 0RF
aspirin 81 mg Tablet,Chewable
81 mg PO DAILY Qty: 0 1RF
potassium chloride 10 mEq tablet extended release
10 meq PO DAILY Qty: 5 0RF
Rx Instructions:
take with lasix for 5 days
furosemide [Lasix] 20 mg tablet
20 mg PO DAILY Qty: 5 0RF
Continued
levothyroxine 125 mcg Tablet
125 mcg PO DAILY
atorvastatin 40 mg tablet
40 mg PO QPM Qty: 90 10RF
Xarelto 20 mg Tablet
20 mg PO HS Qty: 30 1RF
Discontinued
nitroglycerin 0.4 mg tablet, sublingual
0.4 mg sublingual [id number] PRN (Reason: chest pain) Qty: 25 5RF
atenolol 50 mg Tablet
50 mg PO DAILY
losartan-hydrochlorothiazide 100-25 mg Tablet
1 tab PO DAILY
Discharge Orders:
Discharge Patient (As Directed); Ordered 08/26/24
Ordered By: Raquel Kowalski
Care Plan Goals
Care Plan Goals:
Problem: Readiness for enhanced knowledge related to diagnosis and treatment plan
Goal: Understand your diagnosis and treatment plan needs, including medications if applicable.
Instructions: Know your diagnosis, underlying causes and treatment plan options, including medications if applicable. Consult with your health care team to learn about your diagnosis and treatment plan, including medications if applicable.
Discharge Date and Time
Print Language: ANGUILLAN
[2024-08-26] MEDS: NSS IV (10:09)
[2024-08-26] MEDS: BACTROBAN 2% OINTMENT 1 APPLIC NASAL (10:09)
--- NOTE | 2024-08-26 10:33 | CM ---
priced xarelto- called by [facility] to [facility] x[facility]to, pt was prev on xarelto but had only taken samples from his cardiol office. he has no PP in [place]- called his pharm[facility]imi in [place]- to optain in PP plan or med [facility], they are closed today (
chu). called pts and optained PP phonme # and ID#. called [facility] [phone] ID# [id number]. pts copay is zero dollars if he uses the prefered pharm- [facility] at [facility].
called [facility]- they are open today, they can fill 30 day script with free 30 day coupon today. script and coupon given to pt with nstructions to go there today to fill xarelto. pt can go to [facility] tomorrow to fill rest of scripts.
called and updated, she is agreeable. Felisha IGLESIAS, aware. pt to be dc'ed today
[2024-08-26 10:49] VITALS: BP 121/71
[2024-08-26] MEDS: LASIX 40 MG PO (10:51)
[2024-08-26] MEDS: KCL 20 MEQ PO (10:51)
--- NOTE | 2024-08-26 12:31 | PTCARENOTE ---
Discussed impending d/c w/ patient and his spouse. Discussed lasix, kcl, amiodarone and coreg administration. Reviewed d/c w/ pt and his spouse. Pt and spouse verbalized understanding of above. Will monitor.
--- NOTE | 2024-08-29 10:39 | W.PN.UPDATE ---
Update Note
Progress Note Update
CDi query:
Acute postoperative pulmonary insufficiency with hypoxia
== END 2024-08-26 12:37 | disposition home or self-care (01) | DRG 219 ==
LOC: IVU 04:57
PROVIDERS: Anesthesiology; Nurse Practitioner; Physician Assistant Medical; ADMITTING PHYSICIAN Thoracic Surgery (Cardiothoracic Vascular Surgery); FAMILY PHYSICIAN Internal Medicine; OTHER PHYSICIAN Internal Medicine Critical Care Medicine
PROC: 02RF08Z Replacement of Aortic Valve with Zooplastic Tissue, Open Approach (ICD-10-PCS; 2024-08-22)
PROC: B24BZZ4 Ultrasonography of Heart with Aorta, Transesophageal (ICD-10-PCS; 2024-08-22)
PROC: 02L70CK Occlusion of Left Atrial Appendage with Extraluminal Device, Open Approach (ICD-10-PCS; 2024-08-22)
PROC: 06BP4ZZ Excision of Right Saphenous Vein, Percutaneous Endoscopic Approach (ICD-10-PCS; 2024-08-22)
PROC: 02580ZZ Destruction of Conduction Mechanism, Open Approach (ICD-10-PCS; 2024-08-22)
PROC: 021009W Bypass Coronary Artery, One Artery from Aorta with Autologous Venous Tissue, Open Approach (ICD-10-PCS; 2024-08-22)
PROC: 5A1223Z Performance of Cardiac Pacing, Continuous (ICD-10-PCS; 2024-08-22)
PROC: 5A1221Z Performance of Cardiac Output, Continuous (ICD-10-PCS; 2024-08-22)
PROC: 5A2204Z Restoration of Cardiac Rhythm, Single (ICD-10-PCS; 2024-08-22)
DX: I35.2 Nonrheumatic aortic (valve) stenosis with insufficiency (principal); I49.01 Ventricular fibrillation; J95.1 Acute pulmonary insufficiency following thoracic surgery; D62 Acute posthemorrhagic anemia; J90 Pleural effusion, not elsewhere classified; J98.11 Atelectasis; I25.10 Atherosclerotic heart disease of native coronary artery without angina pectoris; I48.0 Paroxysmal atrial fibrillation; R33.8 Other retention of urine; E87.70 Fluid overload, unspecified; E86.1 Hypovolemia; R09.02 Hypoxemia; Y83.2 Surgical operation with anastomosis, bypass or graft as the cause of abnormal reaction of the patient, or of later complication, without mention of misadventure at the time of the procedure; I10 Essential (primary) hypertension; E78.5 Hyperlipidemia, unspecified; I27.29 Other secondary pulmonary hypertension; I77.810 Thoracic aortic ectasia; R73.9 Hyperglycemia, unspecified; E03.9 Hypothyroidism, unspecified; E66.811 Obesity, class 1; Z68.30 Body mass index [BMI] 30.0-30.9, adult; Z87.891 Personal history of nicotine dependence; Z79.01 Long term (current) use of anticoagulants; Z82.49 Family history of ischemic heart disease and other diseases of the circulatory system
CPT/HCPCS: 88305; 88311; 36415; 71045; 71046; 80048; 80053; 81003; 81015; 82248; 82330; 82565; 82805; 82947; 82962; 83036; 83735; 84132; 84302; 84443; 84520; 85014; 85018; 85025; 85027; 85049; 85610; 85730; 86850; 86900; 86901; 86920; 87070; 87086; 93005; 93312; 93320; 93325; 93880; 94002; 99406; J2916; P9045